=== PATIENT | female | born 1975 | race Caucasian/White ===

== ENCOUNTER 2024-02-14 00:03 | Inpatient (IN) | payer SELFPAY ==
[2024-02-14] VITALS (60 sets, daily range): BP systolic 93–169; BP diastolic 61–117; PULSE 89–128; RESP 12–31; TEMP 36.6–37.2; O2SAT 80–100; BMI 21.2; BMI 20.9
--- NOTE | 2024-02-14 00:17 | XRR_ITS ---
PROCEDURE INFORMATION: Exam: XR Chest Exam date and time: 02/14/2024 12:19 AM Age: 48 years old Clinical indication: Patient HX: ETOH with syncope TECHNIQUE: Imaging protocol: Radiologic exam of the chest. Views: 1 view. COMPARISON: No relevant prior studies available. FINDINGS: Lungs: Unremarkable. No consolidation. Pleural spaces: Unremarkable. No pleural effusion. No pneumothorax. Heart/Mediastinum: Unremarkable. No cardiomegaly. Bones/joints: Bony deformity of multiple left-sided ribs from prior trauma. XR/XR chest 1V portable [id number] IMPRESSION: No acute findings.
--- NOTE | 2024-02-14 00:27 | ECG_ITS ---
[facility] Test Date: 2024-02-14 Pat Name: Margi Colbert Department: Room: Gender: Female Study Director: : 1975 Requested By: Damon Honeycutt Order Number: [id number] Gema MD: Alcira Saxena M.D. Measurements Intervals [place] Rate: 101 P: 91 ME: 132 QRS: 88 QRSD: 96 T: 73 QT: 353 QTc: 459 Interpretive Statements SINUS TACHYCARDIA NONSPECIFIC ST & T-WAVE ABNORMALITY ABNORMAL RHYTHM ECG No previous ECG available for comparison Electronically Signed On 02-14-2024 20:26:49 CHASSIS DRIVER by Alcira Saxena M.D. [id number]
--- NOTE | 2024-02-14 00:51 | ED_ITS ---
HPI - Syncope 2 General: Chief Complaint: Syncope Stated Complaint: SYNCOPE Time Seen by Provider: 02/14/24 00:10 History of Present Illness: 48-year-old female who had a syncopal ep isode at home. Duration is unknown. She has multiple complaints including frequent falls, paresthesias in her feet, generalized weakness, weight loss, etc. She is intoxicated. She denies significant chest pain. She is reading a book on my interview. Related Data Allergies Allergy/AdvReac Type Severity Reaction Status Date / Time No Known Allergies Allergy Verified 02/14/24 03:44 Physical Exam 2 Const: COMMON NORMALS: no acute distress and alert GENERAL APPEARANCE: c ooperative and appears older than stated age ORIENTATION/CONSCIOUSNESS: Yes awake, Yes oriented to person and Yes oriented to place HENMT: COMMON NORMALS: normocephalic and atraumatic HEAD & SCALP: n ormocephalic and atraumatic FACE & SINUS: face symmetric Eye: COMMON NORMALS: Equal, round and reactive pupils present and EOMs intact bilaterally PUPIL: Yes Equal, round and reactive pupils present Neck/C-Spine: GENERAL: Yes trachea midline Resp: COMMON NORMALS: normal respiratory effort, No use of accessory muscles and clear to auscultation bilaterally AUSCULTATION: clear to auscultation bilaterally Cardio: COMMON NORMALS: regular rate and regular rhythm RATE: regular rate RHYTHM: regular rhythm GI: COMMON NORMALS: Soft to palpation PALPATION: Yes Soft to palpation Neuro: SENSORIUM/ORIENTATION: Yes alert, Yes oriented to person and Yes oriented to place CRANIAL NERVES: Yes CN normal except as noted Course 2 Vital Signs: Vital signs: Vital Signs Temperature 97.8 F 02/14/24 00:03 Pulse Rate 106 H 02/14/24 04:11 Respiratory Rate 19 H 02/14/24 04:11 Blood Pressure 152/94 02/14/24 03:00 Pulse Oximetry 100 02/14/24 03:20 Oxygen Delivery Me thod Room Air 02/14/24 04:11 MDM - Syncope Medical Decision Making Patient with acute episode of syncope. She also has what sounds like a conglomeration of more chronic symptoms for which she has not seen a doctor. She is slightly tachycardic. Saturations are good. She is afebrile and blood pressure is normal. Hemoglobin is 10.5, platelet count is 139. Bicarbonate is 7. Potassium is 3. Sodium is 129. Bilirubin is 2.3. She will require fluids hesitation, potassium replacement, etc. with her metabolic acidosis, she will require blood gas testing as well. Her alcohol level is nondetectable. pH is 7.16. Bicarbonate of blood gas testing. She will require bicarbonate drip. ICU admission. At 1 point in the ER, she ended up in the floor, confused. No one was in the room when this happened. It appears that she is most likely having seizures, likely alcohol withdrawal seizures. She is covered for sepsis with Zosyn and vancomycin after blood cultures. She will require a head CT on the way to the ICU. Lab Data 02/14/24 01:24 02/14/24 01:24 Radiology Impressions Chest X-Ray 02/14/24 00:17 IMPRESSION: No acute findings. Abdomen/Pelvis CT 02/14/24 02:06 IMPRESSION: 1. Decreased density of the liver, evidence for fatty infiltration. 2. Small hiatal hernia with gastroesophageal reflux. 3. Mild wall thickening and surrounding stranding adjacent to the right colon suspicious for colitis. Laboratory Results WBC 6.32 10^3/uL (3.29-11.43) 02/14/24 01:24 RBC 3.10 10^6/uL (3.85-5.65) L 02/14/24 01:24 Hgb 10.50 g/dL (11.27-16.99) L 02/14/24 01:24 Hct 32.3 % (36-47) L 02/14/24:24 MCV 104.2 fl (85-98) H 02/14/24:24 MCH 33.9 pg (27-33) H 02/14/24:24 MCHC 32.5 g/dL (30-55) 02/14/24 01:24 RDW 16.9 % (12.1-15.1) H 02/14/24 01:24 Plt Count 139 10^3/cmm (157-399) L 02/14/24 01:24 MPV 10.8 fL (7.4-10.4) H 02/14/24 01:24 Neut % (Auto) 83.4 % 02/14/24:24 Lymph % (Auto) 10.0 % 02/14/24:24 [place] % (Auto) 5.5 % 02/14/24 01:24 Eos % (Auto) 0.3 % 02/14/24 01:24 Baso % (Auto) 0.2 % 02/14/24 01:24 Neut # (Auto) 5.27 10^3/uL (1.8-7.7) 02/14/24 01:24 Lymph # (Auto) 0.6 10^3/uL (0.8-4.8) L 02/14/24 01:24 [place] # (Auto) 0.4 10^3/uL (0.2-0.9) 02/14/24 01:24 Eos # (Auto) 0.0 10^3/uL (0.0-0.8) 02/14/24 01:24 Baso # (Auto) 0.0 10^3/uL (0.0-0.1) 02/14/24 01:24 Nucleated RBC % (auto) 0.3 % 02/14/24 01:24 Nucleated RBCs # 0.0 /100WBC 02/14/24 01:24 PT 14.60 SECONDS (12.1-14.9) 02/14/24 01:24 INR 1.10 (0.8-1.2) 02/14/24 01:24 APTT 28.9 SECONDS (23.9-36.7) 02/14/24 01:24 Specimen Type Arterial 02/14/24 02:35 Sample Site Brachial, right 02/14/24 02:35 ABG pH 7.16 (7.35-7.45) L* 02/14/24 02:35 ABG pCO2 12.4 mmHg (35-45) L* 02/14/24 02:35 ABG pO2 129.0 mmHg (80.0-100.0) H 02/14/24 02:35 ABG HCO3 4.4 mmol/L (22-26) L 02/14/24 02:35 ABG Base Excess -22.2 mmol/L (-2.0-2.0) L 02/14/24 02:35 Nick Test N/a 02/14/24 02:35 Hematocrit 28.4 % (37-47) L 02/14/24 02:35 O2 Delivery Device Room air 02/14/24 02:35 Fios Line Installer ID [email or web address] 02/14/24 02:35 Sodium 129 mmol/L (136-145) L 02/14/24 01:24 Potassium 3.0 mmol/L (3.5-5.1) L 02/14/24 01:24 Chloride 85 mmol/L (98-107) L 02/14/24 01:24 Carbon Dioxide 7 mmol/L (22-29) L* 02/14/24 01:24 Anion Gap 40.0 (5-19) H 02/14/24 01:24 BUN 4 mg/dL (6-20) L 02/14/24 01:24 Creatinine 0.6 mg/dL (0.5-0.9) 02/14/24 01:24 GFR Calculation 106.7 mL/min (90-130) 02/14/24 01:24 Glucose 84 mg/dL (65-115) 02/14/24 01:24 Calculated Osmolality 264 mOsm/kg (285-295) L 02/14/24 01:24 Lactic Acid 3.1 mmol/L (0.5-2.2) H 02/14/24 01:24 Calcium 9.6 mg/dL (8.5-10.5) 02/14/24 01:24 Total Bilirubin 2.3 mg/dL (0.15-1.2) H 02/14/24 01:24 AST 68 U/L (0-32) H 02/14/24 01:24 ALT 15 U/L (0-33) 02/14/24 01:24 Alkaline Phosphatase 220 U/L (35-105) H 02/14/24 01:24 Creatine Kinase 248 U/L (26-192) H 02/14/24 01:24 Troponin T Baseline 36 ng/L (0-10) H 02/14/24 01:24 Total Protein 7.3 g/dL (6.6-8.7) 02/14/24 01:24 Albumin 4.7 g/dL (3.5-5.2) 02/14/24 01:24 Globulin 2.6 g/dL (1.3-4.6) 02/14/24 01:24 Lipase 187 U/L (13-60) H 02/14/24 01:24 Ethyl Alcohol < 10 mg/dL (0-10) 11/17/24 01:24 All radiology interpretation(s) finalized by discharge Critical Care Time 2 Critical Care Time: Critical Care Time: Yes Total Critical Care Time: 35 Attestation: This case had a high probability of a clinically significant, sudden, or life threatening deterioration of this patient's condition which required my full and direct attention, intervention and personal management. Time is independent of any procedures performed. Discharge Plan Discharge Patient Disposition: Admitted As Inpatient Admit Provider: Anali Lezama Clinical Impression: Metabolic acidosis, Acute hypokalemia, Acute alteration in mental status Condition: Serious Coding Level of Care Code ED Spring Tester for Nik Talbert
[2024-02-14 01:31] LABS: Basophils % 0.2 %; Eosinophils % 0.3 %; Hematocrit 32.3 % (36-47); Lymphocytes # 0.6 10^3/uL (0.8-4.8); Mean Corpuscular HGB Conc 32.5 g/dL (30-55); Mean Corpuscular Hemoglobin 33.9 pg (27-33); Mean Corpuscular Volume 104.2 fl (85-98); Mean Platelet Volume 10.8 fL (7.4-10.4); Monocytes # 0.4 10^3/uL (0.2-0.9); Monocytes % 5.5 %; Neutrophils # 5.27 10^3/uL (1.8-7.7); Neutrophils % 83.4 %; Nucleated Red Blood Cells % 0.3 %; Platelet Count 139 10^3/cmm (157-399); Red Cell Distribution Width 16.9 % (12.1-15.1); White Blood Count 6.32 10^3/uL (3.29-11.43)
[2024-02-14 01:47] LABS: Partial Thromboplastin Time 28.9 SECONDS (23.9-36.7)
[2024-02-14 01:49] LABS: Troponin(5th) Baseline 36 ng/L (0-10)
[2024-02-14 01:57] LABS: Alanine Aminotransferase 15 U/L (0-33); Albumin Level 4.7 g/dL (3.5-5.2); Alkaline Phosphatase 220 U/L (35-105); Aspartate Amino Transferase 68 U/L (0-32); Blood Urea Nitrogen 4 mg/dL (6-20); Calcium 9.6 mg/dL (8.5-10.5); Chloride 85 mmol/L (98-107); Creatine Phosphokinase 248 U/L (26-192); Creatinine Clr Calc Pharmacy 96.3243; Globulin 2.6 g/dL (1.3-4.6); Glomerular Filtration Rate 106.7 mL/min (90-130); Glucose 84 mg/dL (65-115); Osmolality Calculated 264 mOsm/kg (285-295); Sodium 129 mmol/L (136-145); Total Bilirubin 2.3 mg/dL (0.15-1.2); Total Protein 7.3 g/dL (6.6-8.7)
[2024-02-14 02:03] LABS: Alcohol Level < 10 mg/dL (0-10); Carbon Dioxide 7 mmol/L (22-29)
--- NOTE | 2024-02-14 02:06 | CTR_ITS ---
PROCEDURE INFORMATION: Exam: CT Abdomen And Pelvis With Contrast Exam date and time: 02/14/2024 2:23 AM Age: 48 years old Clinical indication: Pain and abnormal findings; Abnormal lab test; Elevated lipase; Abdominal pain; Generalized; Patient HX: Diffuse abd pain with elevated lipase and bilirubin; Additional info: Abdominal pain, hyperbilirubinemia TECHNIQUE: Imaging protocol: Computed tomography of the abdomen and pelvis with contrast. Radiation optimization: All CT scans at this facility use at least one of these dose optimization techniques: automated exposure control; mA and/or kV adjustment per patient size (includes targeted exams where dose is matched to clinical indication); or iterative reconstruction. Contrast material: OMNI 350; Contrast volume: 80 ml; Contrast route: INTRAVENOUS (IV); COMPARISON: CR (CHEST, ) 02/14/2024 12:19 AM RADIATION DOSE METRICS: Total DLP (mGy-cm): 344.12 FINDINGS: Diaphragm: Small hiatal hernia with gastroesophageal reflux. Liver: Decreased density of the liver, evidence for fatty infiltration. Gallbladder and biliary ducts: Normal. No calcified stones. No ductal dilation. Pancreas: Normal. No ductal dilation. Spleen: Normal. No splenomegaly. Adrenal glands: Normal. No mass. Kidneys and ureters: Normal. No hydronephrosis. Stomach and bowel: mild wall thickening and surrounding stranding adjacent to the right colon suspicious for colitis. Appendix: No evidence of appendicitis. Intraperitoneal space: Unremarkable. No free air. No significant fluid collection. Vasculature: Vascular calcification in the aorta and iliac vessels. No aneurysm. Lymph nodes: Unremarkable. No enlarged lymph nodes. Urinary bladder: Unremarkable as visualized. Reproductive: Unremarkable as visualized. Bones/joints: Bilateral posterior healing rib fractures, in the right at T9 and T10 and on the left at T8 through T10 . Soft tissues: Unremarkable. CT/CT abdomen pelvis w con* [id number] IMPRESSION: 1. Decreased density of the liver, evidence for fatty infiltration. 2. Small hiatal hernia with gastroesophageal reflux. 3. Mild wall thickening and surrounding stranding adjacent to the right colon suspicious for colitis.
[2024-02-14 02:22] LABS: Lactic Sepsis W/Reflex 3.1 mmol/L (0.5-2.2); Lipase 187 U/L (13-60)
[2024-02-14] MEDS: iohexol 350 mg/mL 500 mL Btl (per mL) IV (02:24)
[2024-02-14] MEDS: potassium chloride oral liq 20 mEq/15 mL UDC 40 MEQ PO (02:39)
[2024-02-14] MEDS: sodium chloride 0.9% 1,000 ML 999 ML IV ×2 (02:43→03:18)
[2024-02-14] MEDS: lidocaine 1% 5 ML in potassium chloride premix 100 ML 52.5 ML IV (02:45)
[2024-02-14 02:49] LABS: ABG PH Result 7.16 (7.35-7.45); Arterial Blood Gas Hematocrit 28.4 % (37-47); Base Excess ABG -22.2 mmol/L (-2.0-2.0); Blood Gas Sample Site Brachial, right; Blood Gas Sample Type Arterial; HCO3 ABG 4.4 mmol/L (22-26); Oxygen Device ROOM AIR
[2024-02-14 02:50] LABS: ABG PCO2 12.4 mmHg (35-45)
--- NOTE | 2024-02-14 03:34 | USR_ITS ---
PROCEDURE INFORMATION: Exam: US Abdomen, Limited; Right Upper Quadrant Exam date and time: 02/14/2024 6:52 AM Age: 48 years old Clinical indication: Condition or disease; Other: Hyperbilirubinemia; Additional info: Hyperbilirubinemia, hospitalist requested TECHNIQUE: Imaging protocol: Real time ultrasound of the abdomen with image documentation. Limited exam focused on the right upper quadrant. COMPARISON: CT abdomen pelvis w con* [id number] 02/14/2024 2:23 AM FINDINGS: Liver: There is hepatic steatosis. Gallbladder: Normal. No gallstones. There is no gallbladder wall thickening. Biliary ducts: Normal. No stones. No dilation. Pancreas: Visualized pancreas is unremarkable. Right kidney: Normal. No mass. No hydronephrosis. US/US gall bladder [id number] IMPRESSION: 1. No acute findings. 2. Hepatic steatosis.
[2024-02-14 03:57] LABS: Reflex Lactate Order REFLEX LACTIC ORDERD
[2024-02-14] MEDS: nicotine 21 mg Patch 1 PATCH TRANSDERMA (04:01)
[2024-02-14 04:07] LABS: Troponin 5 2HR 31.39 ng/L (0-10)
[2024-02-14 04:09] LABS: Troponin 5 2HR Delta -4.61 ABS# (0-10)
--- NOTE | 2024-02-14 04:25 | PC.NURSE ---
RN noticed pt had pulled off all leads on the monitor. This RN immediately to room to check on pt. Pt found in floor next to bed. Pt was sitting up with a book in her hand. Bed and floor were saturated with urine. IV catheter to left upper arm had been pulled out. Pt was confused and appeared postictal. No injuries identified upon assessment. Physician was notified and present at bedside to evaluate pt. litharge supervisor was notified. Pt was assisted back to bed. After approximately 10 minutes, pt became more alert and stated she had attempted to stand to go to the bathroom. Call light was in reach and pt had previously been instructed how to use call light. Call light placed back in reach of pt. Pt was instructed to use the call light in the event that she needs to get up again. Pt verbalized understanding.
--- NOTE | 2024-02-14 04:28 | P.HP_ITS ---
Providers/Chief Complaint 2 Admitting Physician: Anali Lezama MD Chief Complaint: SYNCOPE History of Present Illness Margi Lynch is a 48 year old female who does not see any physician does not take any medications, not endorsing any past medical history, stating that she drinks every other day fifth of whiskey and recently started tapering down her alcohol intake. She was sent to the hospital after 1 syncopal event. Patient lives with her . She also smokes 1 pack/day. Patient has not seen a physician in a long time. Not endorsing any cardiac or medical conditions. Patient is stating that she is not able to recall events from the day but seem like she had a seizure. Workup in the ER revealed severe metabolic acidosis high lactic acid abnormal bilirubin consistent with alcohol hepatopathy. Patient had an event in the ER when she fell in her room and then had urinary incontinence, her seizure was not witnessed. When I interviewed the patient she was awake and alert her postictal confusion improved, she was hypertensive tachycardic but doing well on room air She was not confused at all AOx3 GCS 15 NIH 0 Clinically looks dehydrated Patient is not endorsing chest pain shortness of breath recent fever nausea vomiting or diarrhea. Patient is stating that her her p.o. intake is very poor. She has been started on broad-spectrum antibiotics, bicarb drip, CT head is pending, EKG showing sinus tachycardia I have also requested gallbladder ultrasound Review of Systems 2 Const: Reports: chills and change in weight Eyes: Denies: change in vision ENMT: Denies: throat pain Card: Denies: chest pain Resp: Reports: dyspnea GI: Reports: nausea and vomiting : Denies: flank pain Musc: Reports: back pain Medications/Allergies Allergies Allergy/AdvReac Type Severity Reaction Status Date / Time No Known Allergies Allergy Verified 02/14/24 03:44 PFSH Acute 2 PFSH: Medical History (Updated 02/14/24 @ 05:12 by Anali Lezama MD) No pertinent past medical history Vitals/I&O/Wt Last Vital Signs Temp 97.8 F 02/14/24 00:03 Pulse 706 H 02/14/24 04:11 Resp 19 H 02/14/24 04:11 BP 152/94 02/14/24 03:00 Pulse Ox 100 02/14/24 03:20 O2 Del Method Room Air 02/14/24 04:11 02/13/24 02/13/24 02/14/24 14:59 22:59 06:59 Intake Total 1000 / 1000 Balance 1000 / 1000 Weight last 48 hrs Weight 54.431 kg Physical Exam 2 Narrative: Patient is awake and alert Dehydrated GCS 15 AOx3 GCS 15 NIH 0 S1, S2 tachycardia Currently on room air Hypertensive Clinically looks dehydrated Abdomen nontender Pleasant and cooperative able to give above-mentioned HPI No signs of postictal confusion No signs of meningitis Data 02/14/24 01:24 02/14/24 01:24 A&P Assessment and plan (1) Metabolic acidosis: (2) Acute hypokalemia: (3) Acute alteration in mental status: (4) Alcohol withdrawal seizure: (5) Hepatopathy: Plan Alcohol withdrawal seizure I will put patient on CIWA protocol She has received 1 g of Keppra in the ER Patient is trying to taper her alcohol intake Not endorsing any suicidal ideation, feels safe at home Syncope: Patient likely had a seizure Hyponatremia: Alcohol-related Clinically patient is dehydrated with hyponatremia and hypokalemia Sarcopenia protein calorie malnourishment May benefit from dietary consultation Patient endorsing poor p.o. intake Mild muscle injury no signs of rhabdomyolysis Severe metabolic acidosis related to ketosis and high lactic acid Started patient on bicarb drip Colitis: Patient has been given vancomycin and Zosyn I will keep patient on Zosyn for now Request gallbladder ultrasound Patient has alcohol-related hepatopathy: Continue thiamine and folic acid Patient counseled on alcohol cessation She is motivated to quit, Stating that she is trying to fill a paper form to get insurance to get medical help substance abuse: Endorsing using recreational drug marijuana, smokes 1 pack/day, drinks alcohol 1/5 of whiskey Hypokalemia: Replenished Dehydration: Continue IV fluids Will keep patient on GI soft diet DVT prophylaxis Lovenox Full code Admit to ICU Attestations 2 Medical Necessity Statement*: More than 2 midnights anticipated Diagnoses Metabolic acidosis E87.20 Acute hypokalemia E87.6 Acute alteration in mental status R41.82 Alcohol withdrawal seizure F10.939; R56.9 Hepatopathy K76.9
[2024-02-14] MEDS: sodium bicarbonate 150 MEQ in dextrose 5% 1,000 ML 100 MEQ IV (04:39)
--- NOTE | 2024-02-14 04:58 | CTR_ITS ---
PROCEDURE INFORMATION: Exam: CT Head Without Contrast Exam date and time: 02/14/2024 5:02 AM Age: 48 years old Clinical indication: Other: General weakness/ multiple falls; Patient HX: General weakness with recent frequent falls. ; Additional info: Altered mental status TECHNIQUE: Imaging protocol: Computed tomography of the head without contrast. Radiation optimization: All CT scans at this facility use at least one of these dose optimization techniques: automated exposure control; mA and/or kV adjustment per patient size (includes targeted exams where dose is matched to clinical indication); or iterative reconstruction. COMPARISON: No relevant prior studies available. RADIATION DOSE METRICS: Total DLP (mGy-cm): 1001.85 FINDINGS: Brain: Generalized global atrophy. No intracranial masses or mass effect. No midline shift. No abnormal extra-axial collections. No acute intracranial hemorrhage. Cerebral ventricles: Prominence of the ventricles commensurate with atrophy. No carlyn hydrocephalus. Paranasal sinuses: Left maxillary sinusitis incompletely imaged. Mastoid air cells: Visualized mastoid air cells are well aerated. Bones: Unremarkable. No acute fracture. Soft tissues: Unremarkable. CT/CT head wo con* [id number] IMPRESSION: 1. No acute intracranial findings. 2. Left maxillary sinusitis incompletely imaged.
--- NOTE | 2024-02-14 05:21 | USCV_ITS ---
Margi Lynch Age: 48 Gender: F : 1975 Exam Date: 02/14/2024 11:14 Ordering Phys: Anali Lezama MD Technologist: Silvino Santana [place] [facility] [place]: [place] BP: 135 / 92 HR: 98 Rhythm: Sinus Technical Quality: Adequate MEASUREMENTS (Male / Female) Normal Values 2D ECHO LV Diastolic Diameter PLAX 2.7 cm 4.2 - 5.9 / 3.9 - 5.3 cm IVS Diastolic Thickness 1.0 cm 0.6 - 1.0 / 0.6 - 0.9 cm IVS Systolic Thickness 1.2 cm LVPW Diastolic Thickness 0.8 cm 0.6 - 1.0 / 0.6 - 0.9 cm LVPW Systolic Thickness 1.1 cm LVOT Diameter 2.1 cm LV Ejection Fraction 2D Teich 85.5 % LV Ejection Fraction MOD 4C 63.0 % LV Ejection Fraction MOD 2C 57.6 % LV Ejection Fraction 2C AL 60.7 % LA Diameter 3.0 cm RA Systolic Volume 4C AL 14.4 ml RA Systolic Volume 4C MOD 14.3 ml LA Sys Volume AL 21.9 cm cubed LA Sys Volume Index AL 14.2 cm cubed/m squared Aorta at Sinotubular Diameter 2.0 cm IVC Diameter 1.7 cm M-MODE LA Ao Ratio MM 1.3 AV Cusp Separation MM 1.5 cm DOPPLER AV Peak Velocity 205.0 cm/s LVOT Peak Velocity 164.0 cm/s AV Area Cont Eq vti 2.8 cm squared AV Area Cont Eq pk 2.7 cm squared MV Peak Velocity 236.3 cm/s MV Area PHT 7.8 cm squared Mitral E to A Ratio 0.7 TV Peak Velocity 167.5 cm/s TR Peak Velocity 189.0 cm/s TR Peak Gradient 14.3 mmHg TR Mean Velocity 154.0 cm/s TR Mean Gradient 10.2 mmHg TR Velocity Time Integral 38.5 cm PV Peak Velocity 99.0 cm/s RV Ejection Time 0.2 s FINDINGS Left Ventricle Moderate left ventricular hypertrophy. Normal LV ejection fraction of 63%.no regional wall motion abnormalities. Right Ventricle Normal right ventricular size and systolic function. Right Atrium Normal right atrial size. Left Atrium Normal left atrial size. Mitral Valve No gross abnormality noted Aortic Valve Thickened aortic valve. The LV outflow tract velocity is 3.2. The Valsalva velocity is 4.41 m/s Tricuspid Valve No gross abnormalities noted Pulmonic Valve Pulmonic valve not well visualized. Pericardium No pericardial effusion. Aorta Normal aortic annulus size. IVC CONCLUSIONS Moderate left ventricular hypertrophy. Normal LV ejection fraction of 63%.no regional wall motion abnormalities. Features of hypertrophic obstructive cardiomyopathy with a resting gradient 41 mmHg and a Valsalva gradient of 77 mmHg Normal cardiac chamber sizes. No centimeters stenotic or regurgitant lesions There is no pericardial effusion. There are no intracardiac masses. No similar previous studies are available for comparison Dr Alcira Saxena MD FAC (Electronically Signed) Final Date: 15 February 2024 14:03 S
--- NOTE | 2024-02-14 05:23 | ECG_ITS ---
[employer] Test Date: 2024-02-14 Pat Name: Margi Lynch Department: Room: [facility] Gender: Female Director Of Distance Learning: : 1975 Requested By: Damon Honeycutt Order Number: [id number] Reading MD: JONNY CID Measurements Intervals [place] Rate: 100 P: 62 MA: 131 QRS: 59 QRSD: 99 T: 93 QT: 347 QTc: 449 Interpretive Statements SINUS TACHYCARDIA NONSPECIFIC ST & T-WAVE ABNORMALITY ABNORMAL RHYTHM ECG Compared to ECG 02/14/2024 00:27:58 No significant changes Electronically Signed On 02-17-2024 18:17:20 HR SPECIALIST by JONNY CID [email or web address]
[2024-02-14] MEDS: levETIRAcetam 1,000 MG/100 ML PREMIX 400 MG IV (05:41)
[2024-02-14] MEDS: enoxaparin 40 mg/0.4 mL Syringe SUBCUT (05:47)
[2024-02-14] MEDS: piperacillin-tazobactam 3.375 GM in sodium chloride 0.9% (plus) 50 ML IV ×2 (05:59→13:49)
[2024-02-14 06:01] LABS: HIV 1 & 2 Antibody Non-Reactive (Non-Reactiv); HIV 1 & 2 Antigen Non-Reactive (Non-Reactiv)
[2024-02-14 06:04] LABS: Procalcitonin 0.22 ng/mL (0-0.5); Vitamin B12 759 pg/mL (232-1245)
[2024-02-14 06:05] LABS: Lactic Acid level (Lactate) 2.8 mmol/L (0.5-2.2)
[2024-02-14 06:08] LABS: Estmated Average Glucose 77; Hemoglobin A1C 4.3 % (4.0-6.0)
[2024-02-14 06:10] LABS: Hepatitis A Antibody IgM Non-Reactive (Nonreactive); Hepatitis B Core AB, Total Non-Reactive (Nonreactive); Hepatitis B Surface AB < 3.5 (11.5-1000); Hepatitis B Surface Antigen Non-Reactive (Nonreactive); Hepatitis C Virus Antibody Non-Reactive (Nonreactive)
[2024-02-14 06:26] LABS: Alcohol Level < 10 mg/dL (0-10)
[2024-02-14] MEDS: thiamine 100 mg Tablet PO (08:22)
[2024-02-14] MEDS: folic acid 1 mg Tablet PO (08:22)
[2024-02-14] MEDS: multivitamin therapeutic Tablet 1 TAB PO (08:22)
[2024-02-14 11:17] LABS: Bilirubin Urine Negative (Negative); Blood Urine Trace (Negative); Glucose Urine UA Negative (Normal); Ketones Urine 3+ (Negative); Leukocyte Esterase Urine Trace (Negative); Nitrate Urine Positive (Negative); Protein Urine 1+ (Negative); Specific Gravity, Urine 1.017 (1.005-1.030); Urine Appearance Clear (CLEAR); Urine Color Yellow (Yellow); pH Urine 6.5 (5-7)
[2024-02-14 11:22] LABS: Add Urine Microscopic? YES; Bacteria Urine 1+ /hpf; Hyaline Casts Urine 4.11 /lpf; RBC Urine 0-2 /hpf (0-2); Squamous Epithelial Cell Urine 0-5 /hpf (0-5); WBC Urine 0-5 /hpf (0-5)
[2024-02-14 11:25] LABS: Add Urine Culture? Yes
[2024-02-14 11:37] LABS: Glucose Point of Care 175 mg/dL (70-110)
[2024-02-14 11:38] LABS: Amphetamines Screen Urine Negative (Negative); Barbiturates Screen Urine Negative (Negative); Benzodiazepines Screen Urine Negative (Negative); Cocaine Screen Urine Negative (Negative); Opiate Screen Urine Negative (Negative); PCP Screen Urine Negative (Negative); THC Screen Urine Negative (Negative)
--- NOTE | 2024-02-14 14:53 | PC.NURSE ---
Report was given to Annel in [facility]. Patient was transferred successfully to [facility] without any complications. Patient's belongings were transferred with patient. Patient was stable.
--- NOTE | 2024-02-14 15:55 | PM.MISC ---
Miscellaneous Note Purpose of Documentation: Overnight chart and H&P reviewed. Patient is currently awake and alert. She does take a long time to respond to questions, however when she does she does respond appropriately. She is currently able to tell me her name and age and date of . She knows that she is in the hospital. She states that she drinks nearly every day, estimates drinking 20 drinks in the past week. She states she has had seizures in the past, most recently was in May of this year. It does not appear she had any medical attention at that time. Denies any known history of epilepsy. There is some concern that she may have had a seizure episode in the emergency room. Patient was found on the floor having passed urine in bed. She was confused at that time Sb the thought was she may be postictal. There was no witnessed tonic-clonic movement at that time. In the ICU, when she attempted to ambulate from bed to the bedside commode, she could not make it to the commode in time and ended up having a bowel movement and passed urine on the floor. She denies any incontinence. Her alcohol level was negative and overall she is at currently admitted with a concern of alcohol withdrawal seizure/delirium tremens. Her last CIWA score was at 6. She is receiving Ativan as needed currently. She had evidence of high anion gap metabolic acidosis, for which she was on bicarb infusion. We will check a repeat CMP this afternoon to see if bicarb drip needed needs to be continued. CT head was negative. Will check ammonia level. Gallbladder ultrasound did not reveal any obvious hepatobiliary obstruction. No evidence of cirrhosis. He has not had any seizures since being here in the emergency room. CT of the abdomen and pelvis showed possible colitis. Will check C. difficile PCR. UA additionally positive, pending urine culture. She is currently on empiric piperacillin/tazobactam while pending results of cultures. She has been afebrile and hemodynamically stable Can move from ICU to med/surg with close CIWA monitoring.
[2024-02-14 16:24] LABS: ABG PCO2 30.6 mmHg (35-45); ABG PH Result 7.55 (7.35-7.45); Arterial Blood Gas Hematocrit 21.6 % (37-47); Base Excess ABG 4.2 mmol/L (-2.0-2.0); Blood Gas Operator Identificat GD; Blood Gas Sample Site Brachial, right; Blood Gas Sample Type Arterial; HCO3 ABG 26.8 mmol/L (22-26); Oxygen Device ROOM AIR; PO2 ABG 73.7 mmHg (80.0-100.0); PO2 FiO2 Ratio Arterial Blood 350
[2024-02-14 17:53] LABS: C.Diff PCR (Lab) NEGATIVE (Negative)
[2024-02-14 18:34] LABS: Alanine Aminotransferase 13 U/L (0-33); Albumin Level 3.9 g/dL (3.5-5.2); Alkaline Phosphatase 174 U/L (35-105); Ammonia 20 umol/L (11-51); Anion Gap 19.9 (5-19); Aspartate Amino Transferase 66 U/L (0-32); Blood Urea Nitrogen 8 mg/dL (6-20); Calcium 9.5 mg/dL (8.5-10.5); Carbon Dioxide 25 mmol/L (22-29); Chloride 96 mmol/L (98-107); Globulin 2.8 g/dL (1.3-4.6); Glomerular Filtration Rate 131.7 mL/min (90-130); Glucose 141 mg/dL (65-115); Osmolality Calculated 287 mOsm/kg (285-295); Sodium 138 mmol/L (136-145); Total Bilirubin 2.1 mg/dL (0.15-1.2); Total Protein 6.7 g/dL (6.6-8.7)
[2024-02-14 18:37] LABS: Potassium 2.9 mmol/L (3.5-5.1)
[2024-02-15] VITALS (7 sets, daily range): BP systolic 97–123; BP diastolic 61–81; PULSE 77–98; RESP 16–19; TEMP 36.7–36.9; O2SAT 97–100
[2024-02-15] MEDS: piperacillin-tazobactam 3.375 GM in sodium chloride 0.9% (plus) 50 ML IV ×3 (05:40→19:51)
[2024-02-15 05:53] LABS: Basophils % 0.2 %; Eosinophils % 0.2 %; Hematocrit 21.5 % (36-47); Lymphocytes # 1.4 10^3/uL (0.8-4.8); Lymphocytes % 28.2 %; Mean Corpuscular HGB Conc 33.5 g/dL (30-55); Mean Corpuscular Hemoglobin 33.3 pg (27-33); Mean Corpuscular Volume 99.5 fl (85-98); Mean Platelet Volume 12.1 fL (7.4-10.4); Monocytes # 0.5 10^3/uL (0.2-0.9); Monocytes % 9.2 %; Neutrophils # 3.01 10^3/uL (1.8-7.7); Neutrophils % 61.4 %; Nucleated Red Blood Cells % 0.4 %; Platelet Count 86 10^3/cmm (157-399); Red Blood Count 2.16 10^6/uL (3.85-5.65); Red Cell Distribution Width 16.7 % (12.1-15.1)
[2024-02-15 06:14] LABS: Lactate (Lactic Acid level) 1.2 mmol/L (0.5-2.2)
[2024-02-15 06:15] LABS: Alanine Aminotransferase 14 U/L (0-33); Albumin Level 3.4 g/dL (3.5-5.2); Alkaline Phosphatase 173 U/L (35-105); Anion Gap 18.2 (5-19); Aspartate Amino Transferase 82 U/L (0-32); Blood Urea Nitrogen 8 mg/dL (6-20); C Reactive Protein 4.9 mg/L (0.0-4.9); Calcium 9.4 mg/dL (8.5-10.5); Carbon Dioxide 27 mmol/L (22-29); Chloride 93 mmol/L (98-107); Creatinine Clr Calc Pharmacy 117.3626; Globulin 2.3 g/dL (1.3-4.6); Glomerular Filtration Rate 131.7 mL/min (90-130); Glucose 77 mg/dL (65-115); Magnesium 1.2 mg/dL (1.7-2.3); Osmolality Calculated 279 mOsm/kg (285-295); Sodium 136 mmol/L (136-145); Total Protein 5.7 g/dL (6.6-8.7)
[2024-02-15 06:36] LABS: Phosphorus 0.3 mg/dL (2.5-4.5); Potassium 2.2 mmol/L (3.5-5.1)
[2024-02-15] MEDS: enoxaparin 40 mg/0.4 mL Syringe SUBCUT (07:19)
[2024-02-15] MEDS: folic acid 1 mg Tablet PO (07:41)
[2024-02-15] MEDS: thiamine 100 mg Tablet PO (07:41)
[2024-02-15] MEDS: multivitamin therapeutic Tablet 1 TAB PO (07:41)
[2024-02-15] MEDS: potassium phosphate (mEq K) 40 MEQ in sodium chloride 0.9% (100 ml) 100 ML 25 MEQ IV ×2 (07:43→13:25)
[2024-02-15] MEDS: magnesium sulfate premix 2 GM/50 ML PIGGYBACK IV ×2 (07:43→13:24)
[2024-02-15 10:13] LABS: Basophils % 0.2 %; Eosinophils % 0.4 %; Hematocrit 23.8 % (36-47); Lymphocytes # 1.3 10^3/uL (0.8-4.8); Lymphocytes % 24.9 %; Mean Corpuscular Hemoglobin 34.6 pg (27-33); Mean Corpuscular Volume 101.7 fl (85-98); Mean Platelet Volume 11.8 fL (7.4-10.4); Monocytes # 0.4 10^3/uL (0.2-0.9); Neutrophils # 3.37 10^3/uL (1.8-7.7); Neutrophils % 65.9 %; Nucleated Red Blood Cells % 0.6 %; Platelet Count 101 10^3/cmm (157-399); Red Blood Count 2.34 10^6/uL (3.85-5.65); White Blood Count 5.11 10^3/uL (3.29-11.43)
--- NOTE | 2024-02-15 12:26 | P.PN_ITS ---
Vitals/I&O/Wt Last Vital Signs Temp 98.0 F 02/15/24 12:00 Pulse 91 02/15/24 12:00 Resp 19 H 02/15/24 12:00 BP 121/81 02/15/24 12:00 Pulse Ox 97 02/15/24 12:00 O2 Del Method Room Air 02/15/24 12:00 02/14/24 02/15/24 02/15/24 22:59 06:59 14:59 Intake Total 1500 / 1895 650 / 2545 580 / 580 Output Total 300 / 900 Balance 1200 / 995 650 / 1645 580 / 580 Weight last 48 hrs Weight 56.472 kg Weight 53.479 kg Weight 54.431 kg Data 02/15/24 10:00 02/15/24 05:17 Micro: Microbiology 02/14/24 11:09 Urine Culture - Preliminary Urine,Clean Catch 02/14/24 05:36 Blood Culture - Preliminary Blood NEGATIVE TO DATE 02/14/24 05:30 Blood Culture - Preliminary Blood NEGATIVE TO DATE A&P Assessment and plan (1) Metabolic acidosis: (2) Acute hypokalemia: (3) Acute alteration in mental status: (4) Alcohol withdrawal seizure: (5) Hepatopathy: Plan Alcohol withdrawal seizure I will put patient on CIWA protocol She has received 1 g of Keppra in the ER Patient is trying to taper her alcohol intake Not endorsing any suicidal ideation, feels safe at home Syncope: Patient likely had a seizure Hyponatremia: Alcohol-related Clinically patient is dehydrated with hyponatremia and hypokalemia Sarcopenia protein calorie malnourishment May benefit from dietary consultation Patient endorsing poor p.o. intake Mild muscle injury no signs of rhabdomyolysis Severe metabolic acidosis related to ketosis and high lactic acid Started patient on bicarb drip Colitis: Patient has been given vancomycin and Zosyn I will keep patient on Zosyn for now Request gallbladder ultrasound Patient has alcohol-related hepatopathy: Continue thiamine and folic acid Patient counseled on alcohol cessation She is motivated to quit, Stating that she is trying to fill a paper form to get insurance to get medical help substance abuse: Endorsing using recreational drug marijuana, smokes 1 pack/day, drinks alcohol 1/5 of whiskey Hypokalemia: Replenished Dehydration: Continue IV fluids Will keep patient on GI soft diet DVT prophylaxis Lovenox Full code Admit to ICU 02/15/2024 -Phosphorus 0.3, magnesium 1.2, potassium 2.2. ? Potassium phosphate ordered this morning x 2 bags. ? Magnesium 2g ordered. Will order an additional 2 g. ? Repeat electrolytes at 8 PM. ? Recheck BMP, magnesium, phosphorus in AM. ? Hemoglobin 7.2 this morning. Repeat CBC shows hemoglobin 8.10. Possible dilutional component?. Iron deficiency not ruled out. Possible megaloblastic component. Continue folic acid. Will add B12. ? Will check iron studies FOBT, TIBC, ferritin. -Patient states she is feeling better. No further seizures noted. Attestations 2 Medical Necessity Statement*: More than 2 midnights anticipated. Patient has severe electrolyte abnormalities and is requiring IV electrolyte replacement at this time. Diagnoses Metabolic acidosis E87.20 Acute hypokalemia E87.6 Acute alteration in mental status R41.82 Alcohol withdrawal seizure F10.939; R56.9 Hepatopathy K76.9
[2024-02-15 13:07] LABS: Iron 160 ug/dL (37-145)
[2024-02-15 13:21] LABS: Ferritin 2009 ng/mL (15-150)
[2024-02-15 13:22] LABS: Percent Saturation 90.3 % (20-50); Total Iron Binding Capacity 177 mcg/dl; Unsaturated Iron Binding < 17 ug/dL (112-347)
--- NOTE | 2024-02-15 14:33 | PC.NURSE ---
Pt requesting nicotine patch and family at bedside is requesting to speak with the doctor. This nurse messaged Dr. Graham via voalte. A new order for 14mg nicotine patch placed per Dr. Graham and a phone number for patients , Anselmo, was obtained for Dr. Graham to call and speak with him. [phone]
[2024-02-15] MEDS: nicotine 14 mg Patch 1 PATCH TRANSDERMA ×2 (14:37→16:51)
--- NOTE | 2024-02-15 15:05 | MR_ITS ---
WS: [id number] MRI BRAIN WITHOUT CONTRAST HISTORY: new onset seizures COMPARISON: CT head 02/14/2024 TECHNIQUE: Diffusion imaging, multiplanar T1, T2 and FLAIR imaging obtained. No evidence for acute infarct or hemorrhage. Malcolm-white matter differentiation is normal. No signific ant hippocampal atrophy. Mild to moderate atrophy. The amount of atrophy is more than expected for patient of this age involvi ng the frontal lobes. Minimal small vessel ischemic disease. No prior large territory infarct. Ventricles and extra-axial spaces are normal. No inferior displacement of cerebellar tonsils. The sella turcica and pituitary gland are unremarkabl e. Dural venous sinuses and [place] demonstrate no abnormality on this unenhanced studies. Paranasal sinuses: Complete opacification of the LEFT maxillary sinus with heterogeneous fluid extend ing into the ethmoid air cells. There is small amount of mucoperiosteal thickening in the LEFT fronta l and frontoethmoid recess. Mastoid air cells: Normal. Calvarium and scalp: Intact. MR/MR head wo con* [id number] IMPRESSION: 1. No acute infarct. Normal diffusion imaging. 2. Mild to moderate cerebral atrophy, more than expected for patient of this a ge. 3. Minimal small vessel ischemic disease. 4. LEFT maxillary sinusitis. Lesser amount of mucoperiosteal thickening in the LEFT frontal and ethmoid air cells.
[2024-02-15] MEDS: levETIRAcetam 500 mg Tablet PO (16:51)
[2024-02-15 20:37] LABS: Anion Gap 15.2 (5-19); Blood Urea Nitrogen 4 mg/dL (6-20); Calcium 9.4 mg/dL (8.5-10.5); Carbon Dioxide 31 mmol/L (22-29); Chloride 93 mmol/L (98-107); Creatinine Clr Calc Pharmacy 146.7032; Glomerular Filtration Rate 170.4 mL/min (90-130); Glucose 109 mg/dL (65-115); Osmolality Calculated 281 mOsm/kg (285-295); Sodium 137 mmol/L (136-145)
[2024-02-15 20:40] LABS: Potassium 2.2 mmol/L (3.5-5.1)
[2024-02-15] MEDS: lidocaine 1% 5 ML in potassium chloride premix 100 ML 26.25 ML IV (23:22)
[2024-02-16] VITALS (19 sets, daily range): BP systolic 118–178; BP diastolic 74–114; PULSE 77–92; RESP 16–18; TEMP 36.3–37.2; O2SAT 96–100
[2024-02-16] MEDS: potassium chloride ER 20 mEq Tablet 40 MEQ PO ×2 (00:24→02:05)
[2024-02-16 01:14] LABS: Basophils % 0.3 %; Eosinophils % 1.1 %; Lymphocytes # 1.2 10^3/uL (0.8-4.8); Lymphocytes % 33.6 %; Mean Corpuscular HGB Conc 33.3 g/dL (30-55); Mean Corpuscular Hemoglobin 32.9 pg (27-33); Mean Corpuscular Volume 98.6 fl (85-98); Mean Platelet Volume 11.9 fL (7.4-10.4); Monocytes # 0.4 10^3/uL (0.2-0.9); Monocytes % 9.5 %; Neutrophils # 2.02 10^3/uL (1.8-7.7); Neutrophils % 54.7 %; Nucleated Red Blood Cells % 0 %; Platelet Count 89 10^3/cmm (157-399); Red Blood Count 2.13 10^6/uL (3.85-5.65); Red Cell Distribution Width 16.9 % (12.1-15.1); White Blood Count 3.69 10^3/uL (3.29-11.43)
[2024-02-16 01:22] LABS: Magnesium 1.8 mg/dL (1.7-2.3)
[2024-02-16 01:23] LABS: Albumin Level 3.5 g/dL (3.5-5.2); Anion Gap 12.5 (5-19); Blood Urea Nitrogen 3 mg/dL (6-20); Calcium 8.2 mg/dL (8.5-10.5); Carbon Dioxide 32 mmol/L (22-29); Chloride 96 mmol/L (98-107); Creatinine Clr Calc Pharmacy 195.6043; Glomerular Filtration Rate 237.4 mL/min (90-130); Glucose 115 mg/dL (65-115); Phosphorus 1.2 mg/dL (2.5-4.5); Sodium 138 mmol/L (136-145)
[2024-02-16 01:33] LABS: Potassium 2.5 mmol/L (3.5-5.1)
[2024-02-16] MEDS: lidocaine 1% 5 ML in potassium chloride premix 100 ML 26.25 ML IV (04:21)
[2024-02-16] MEDS: enoxaparin 40 mg/0.4 mL Syringe SUBCUT (06:38)
[2024-02-16] MEDS: piperacillin-tazobactam 3.375 GM in sodium chloride 0.9% (plus) 50 ML IV ×3 (06:38→22:20)
[2024-02-16] MEDS: levETIRAcetam 500 mg Tablet PO ×2 (09:00→17:21)
[2024-02-16] MEDS: thiamine 100 mg Tablet PO (09:00)
[2024-02-16] MEDS: multivitamin therapeutic Tablet 1 TAB PO (09:00)
[2024-02-16] MEDS: nicotine 14 mg Patch 1 PATCH TRANSDERMA (09:01)
[2024-02-16] MEDS: folic acid 1 mg Tablet PO (09:01)
[2024-02-16 09:04] LABS: LAB Peripheral Smear Sent for Review
[2024-02-16] MEDS: pantoprazole 40 mg SDV IVP (13:03)
--- NOTE | 2024-02-16 13:37 | P.PN_ITS ---
Subjective 2 Subjective: Seen this morning. Hemoglobin 7.0 this morning, platelets 89. Had a long discussion with the patient. She states she that takes 7-8 shots of whiskey every other day. She says she has significantly cut down compared to before. Discussed with her regarding alcohol cessation. Offered her alcohol Anonymous information however she states that she knows how to obtain help when will find a support group and eminence on her own. Potassium 2.5. She is having potassium IV running at this time. Phosphorus 1.2 this morning. It is a 1.8. FOBT is positive. Vitals/I&O/Wt Last Vital Signs Temp 98.2 F 02/16/24 12:00 Pulse 89 02/16/24 12:00 Resp 18 02/16/24 12:00 BP 118/82 02/16/24 12:00 Pulse Ox 97 02/16/24 12:00 O2 Del Method Room Air 02/16/24 12:00 02/15/24 02/16/24 02/16/24 22:59 06:59 14:59 Intake Total 639.0909 / 1857.0079 155 / 2011.0079 1115 / 1115 Balance 639.0909 / 1857.0079 155 / 0079 1115 / 1115 Weight last 48 hrs Weight 58.695 kg Weight 56.472 kg Physical Exam 2 Narrative: Patient is awake and alert Appears significantly better compared to prior day. Alert oriented x 3 Normal S1-S2 Abdomen soft nontender No edema bilateral lower extremities Lungs clear to auscultation bilaterally no wheezes no rhonchi. Data 02/16/24 00:58 02/16/24 00:58 Micro: Microbiology 02/16/24 10:30 Occult Blood (FIT) - Final Stool Routine Collection 02/14/24 11:09 Urine Culture - Final Urine,Clean Catch A&P Assessment and plan (1) Metabolic acidosis: (2) Acute hypokalemia: (3) Acute alteration in mental status: (4) Alcohol withdrawal seizure: (5) Hepatopathy: Plan Alcohol withdrawal seizure I will put patient on CIWA protocol She has received 1 g of Keppra in the ER Patient is trying to taper her alcohol intake Not endorsing any suicidal ideation, feels safe at home Syncope: Patient likely had a seizure Hyponatremia: Alcohol-related Clinically patient is dehydrated with hyponatremia and hypokalemia Sarcopenia protein calorie malnourishment May benefit from dietary consultation Patient endorsing poor p.o. intake Mild muscle injury no signs of rhabdomyolysis Severe metabolic acidosis related to ketosis and high lactic acid Started patient on bicarb drip Colitis: Patient has been given vancomycin and Zosyn I will keep patient on Zosyn for now Request gallbladder ultrasound Patient has alcohol-related hepatopathy: Continue thiamine and folic acid Patient counseled on alcohol cessation She is motivated to quit, Stating that she is trying to fill a paper form to get insurance to get medical help substance abuse: Endorsing using recreational drug marijuana, smokes 1 pack/day, drinks alcohol 1/5 of whiskey Hypokalemia: Replenished Dehydration: Continue IV fluids Will keep patient on GI soft diet DVT prophylaxis Lovenox Full code Admit to ICU 02/15/2024 -Phosphorus 0.3, magnesium 1.2, potassium 2.2. ? Potassium phosphate ordered this morning x 2 bags. ? Magnesium 2g ordered. Will order an additional 2 g. ? Repeat electrolytes at 8 PM. ? Recheck BMP, magnesium, phosphorus in AM. ? Hemoglobin 7.2 this morning. Repeat CBC shows hemoglobin 8.10. Possible dilutional component?. Iron deficiency not ruled out. Possible megaloblastic component. Continue folic acid. Will add B12. ? Will check iron studies FOBT, TIBC, ferritin. -Patient states she is feeling better. No further seizures noted. 02/16/2024 ?Continue Keppra 500 twice daily. She will need outpatient EEG and neurology referral. She states that her family has a history of seizures and she has had seizures for quite some time now however has never seen a neurologist or ever been on seizure medication. Spoke to regarding this on the phone yesterday as well. MRI brain was performed which does not show any acute pathology explaining seizures. Discussed with her the possibility of having alcohol withdrawal seizures to which at first she stated that there is a possibility however she also stated that she has had them for a long time. ? Severe electrolyte abnormalities, potassium 2.5 today. Phosphorus 1.2. ? Hemoglobin 7.0 this morning. Ordered 1 unit packed RBC. FOBT positive. Ordered Protonix 40 IV twice daily, add sucralfate. I discussed with general surgery and placed a consult. Possibility of EGD colonoscopy in AM. Will await for further recommendations. ? Iron studies reviewed. ? I will discontinue vancomycin at this time. Continue Zosyn for possible colitis as evidenced on abdomen CT. Gallbladder ultrasound reviewed. Decrease density of the liver evidence for fatty infiltration. No gallbladder disease noted. Bile duct is normal. Continue Zosyn for total of 7 days. ? Will put dietary consult. Patient does have protein calorie malnutrition ? Hyponatremia, electrolyte abnormalities, thrombocytopenia most likely secondary to alcohol use. ? Discussed alcohol cessation with her today. She states she will find help and eminence and is not interested in having pressures for alcohol Anonymous at this time.. Attestations 2 Medical Necessity Statement*: Anemia GI workup. Severe electrolyte abnormalities warranting IV electrolyte replacement at this time. Diagnoses Metabolic acidosis E87.20 Acute hypokalemia E87.6 Acute alteration in mental status R41.82 Alcohol withdrawal seizure F10.939; R56.9 Hepatopathy K76.9
--- NOTE | 2024-02-16 13:48 | P.CONIM_ITS ---
Providers/Reason For Consult 2 Consulting Physician/Specialty*: Dr. York general surgery Reason for Consult*: GI bleed Attending Physician: Brandi Graham MD History of Present Illness History of Present Illness Margi Lynch is a 48 year old female for whom general surgery was consulted for occult GI bleed. The patient has been dropping hemoglobin. No hematochezia, no melena, no weight loss Medications/Allergies Home Medications Medication Instructions Recorded Confirmed Last Taken Type No Known Home Medications 02/14/24 02/14/24 Unknown History Allergies Allergy/AdvReac Type Severity Reaction Status Date / Time No Known Allergies Allergy Verified 02/14/24 03:44 Current Medications Generic Name Dose Route Start Last Admin Trade Name Freq PRN Reason Stop Dose Admin Enoxaparin Sodium 40 mg 02/14/24 05:30 02/16/24 06:38 Enoxaparin 40 Mg/0.4 Ml Syringe SUBCUT 40 mg Q24H EDINSON Administration Folic Acid 1 mg 02/14/24 09:00 02/16/24 09:01 Folic Acid 1 Mg Tablet PO 1 mg DAILY EDINSON Administration Piperacillin Sod/Tazobactam 50 mls @ 12.5 mls/hr 02/14/24 05:30 02/16/24 13:03 Sod 3.375 gm/ Sodium Chloride IV 12.5 mls/hr Q8H EDINSON Administration Levetiracetam 500 mg 02/15/24 18:00 02/16/24 09:00 Levetiracetam 500 Mg Tablet PO 500 mg BID EDINSON Administration Multivitamins Therapeutic 1 tab 02/14/24 09:00 02/16/24 09:00 Multivitamin Therapeutic Tablet PO 1 tab DAILY EDINSON Administration Nicotine 1 patch 02/15/24 14:31 02/16/24 09:01 Nicotine 14 Mg Patch TRANSDERMA 1 patch DAILY EDINSON Administration Pantoprazole Sodium 40 mg 02/16/24 12:45 02/16/24 13:03 Pantoprazole 40 Mg Sdv IVP 40 mg Q12H EDINSON Administration Thiamine Mononitrate 100 mg 02/14/24 09:00 02/16/24 09:00 Thiamine 100 Mg Tablet PO 100 mg DAILY EDINSON Administration PFSH Acute 2 PFSH: Medical History (Updated 02/16/24 @ 16:42 by Gigi York MD) No pertinent past medical history Vitals/I&O/Wt Last Vital Signs Temp 98.2 F 02/16/24 12:00 Pulse 89 02/16/24 12:00 Resp 18 02/16/24 12:00 BP 118/82 02/16/24 12:00 Pulse Ox 97 02/16/24 12:00 O2 Del Method Room Air 02/16/24 12:00 02/15/24 02/16/24 02/16/24 22:59 06:59 14:59 Intake Total 639.0909 / 1857.0079 155 2011.0079 1115 / 1115 Balance 639.0909 / 1857.0079 155 2011.0079 1115 / 1115 Weight last 48 hrs Weight 129 lb 6.4 oz Weight 124 lb 8 oz Physical Exam 2 Narrative: Chest: Unlabored breathing room air. No lymphadenopathy. Heart: Regular rate and rhythm. Abdomen: Soft, nontender, nondistended. No masses or lymphadenopathy. Data 02/16/24 00:58 02/16/24 14:26 Micro: Microbiology 02/16/24 10:30 Occult Blood (FIT) - Final Stool Routine Collection 02/14/24 11:09 Urine Culture - Final Urine,Clean Catch A&P Assessment and plan (1) GIB (gastrointestinal bleeding): Plan 48-year-old female some general surgery was consulted for possible GI bleed. Discussed risk and benefits and patient agrees to proceed with EGD and colonoscopy. Coding Level of Care Code 54281 Diagnoses GIB (gastrointestinal bleeding) K92.2 Time Spent (min) 30
[2024-02-16] MEDS: bisacodyl 5 mg Tablet 10 MG PO (14:14)
[2024-02-16] MEDS: magnesium citrate Btl 296 mL PO ×2 (14:15→19:44)
[2024-02-16 14:59] LABS: Anion Gap 14.1 (5-19); Blood Urea Nitrogen 3 mg/dL (6-20); Calcium 9.3 mg/dL (8.5-10.5); Carbon Dioxide 29 mmol/L (22-29); Chloride 99 mmol/L (98-107); Glomerular Filtration Rate 237.4 mL/min (90-130); Glucose 110 mg/dL (65-115); Osmolality Calculated 285 mOsm/kg (285-295); Potassium 3.1 mmol/L (3.5-5.1); Sodium 139 mmol/L (136-145)
[2024-02-16 15:01] LABS: Creatinine Clr Calc Pharmacy 198.8235
[2024-02-16] MEDS: sucralfate 1 gm Tablet PO ×2 (17:21→19:45)
[2024-02-16] MEDS: acetaminophen 500 mg Tablet PO (17:21)
[2024-02-16] MEDS: hyDRALAzine 20 mg/mL INJ 1 mL 5 MG IVP ×2 (18:15→19:51)
[2024-02-17] VITALS (8 sets, daily range): BP systolic 134–152; BP diastolic 83–107; PULSE 79–97; RESP 15–18; TEMP 36.4–37.2; O2SAT 98–100
[2024-02-17] MEDS: pantoprazole 40 mg SDV IVP ×2 (01:01→13:07)
[2024-02-17 05:45] LABS: Basophils % 0.5 %; Hematocrit 28.1 % (36-47); Lymphocytes # 1.8 10^3/uL (0.8-4.8); Mean Corpuscular HGB Conc 33.8 g/dL (30-55); Mean Corpuscular Hemoglobin 33.9 pg (27-33); Mean Corpuscular Volume 100.4 fl (85-98); Mean Platelet Volume 12.5 fL (7.4-10.4); Monocytes # 0.4 10^3/uL (0.2-0.9); Monocytes % 10.5 %; Nucleated Red Blood Cells % 0.7 %; Platelet Count 105 10^3/cmm (157-399); Red Cell Distribution Width 19.9 % (12.1-15.1); White Blood Count 4.09 10^3/uL (3.29-11.43)
[2024-02-17] MEDS: enoxaparin 40 mg/0.4 mL Syringe SUBCUT (06:01)
[2024-02-17] MEDS: piperacillin-tazobactam 3.375 GM in sodium chloride 0.9% (plus) 50 ML IV ×3 (06:01→23:00)
[2024-02-17] MEDS: sucralfate 1 gm Tablet PO ×4 (06:01→20:29)
[2024-02-17 06:14] LABS: Anion Gap 14.4 (5-19); Blood Urea Nitrogen 2 mg/dL (6-20); Calcium 8.5 mg/dL (8.5-10.5); Carbon Dioxide 28 mmol/L (22-29); Chloride 99 mmol/L (98-107); Creatinine Clr Calc Pharmacy 298.2353; Glomerular Filtration Rate 379.1 mL/min (90-130); Glucose 95 mg/dL (65-115); Osmolality Calculated 284 mOsm/kg (285-295); Sodium 139 mmol/L (136-145)
[2024-02-17 06:15] LABS: Slide Review Slide Review Perform
[2024-02-17 06:27] LABS: Potassium 2.4 mmol/L (3.5-5.1)
[2024-02-17] MEDS: nicotine 14 mg Patch 1 PATCH TRANSDERMA (09:02)
[2024-02-17] MEDS: potassium chloride ER 20 mEq Tablet 40 MEQ PO ×2 (09:03→15:22)
[2024-02-17] MEDS: levETIRAcetam 500 mg Tablet PO ×2 (09:03→17:17)
--- NOTE | 2024-02-17 11:22 | P.PN_ITS ---
Subjective 2 Subjective: No hematochezia, no melena Getting potassium repleted Vitals/I&O/Wt Last Vital Signs Temp 98.9 F 02/17/24 08:00 Pulse 82 02/17/24 08:34 Resp 16 02/17/24 08:34 BP 151/87 02/17/24 08:00 Pulse Ox 98 02/17/24 08:34 O2 Del Method Room Air 02/17/24 08:34 02/16/24 02/17/24 02/17/24 22:59 06:59 14:59 Intake Total 300 / 1415 50 / 1465 0 / 0 Balance 300 / 1415 50 / 1465 0 / 0 Weight last 48 hrs Weight 127 lb 4.8 oz Weight 129 lb 6.4 oz Physical Exam 2 Narrative: Chest: Unlabored breathing room air. No lymphadenopathy. Heart: Regular rate and rhythm. Abdomen: Soft, nontender, nondistended. No masses or lymphadenopathy. Data 02/17/24 05:06 02/17/24 05:06 Micro: Microbiology 02/16/24 10:30 Occult Blood (FIT) - Final Stool Routine Collection 02/14/24 11:09 Urine Culture - Final Urine,Clean Catch A&P Assessment and plan (1) GIB (gastrointestinal bleeding): Plan 48-year-old female consulted for possible GI bleed. Planning to scope after potassium gets repleted. Attestations 2 Medical Necessity Statement*: NA Coding Level of Care Code 97066 Diagnoses GIB (gastrointestinal bleeding) K92.2 Time Spent (min) 30
[2024-02-17] MEDS: potassium chloride premix 100 ML 25 MEQ IV (11:49)
[2024-02-17] MEDS: phosphorus 250 mg Tablet PO ×2 (13:07→17:18)
[2024-02-17] MEDS: multivitamin therapeutic Tablet 1 TAB PO (13:07)
[2024-02-17] MEDS: folic acid 1 mg Tablet PO (13:08)
[2024-02-17] MEDS: thiamine 100 mg Tablet PO (13:08)
[2024-02-17] MEDS: acetaminophen 500 mg Tablet PO (13:09)
--- NOTE | 2024-02-17 13:32 | P.PN_ITS ---
Subjective 2 Subjective: Seen this morning. Phosphorus at 1.2. Oral phosphorus ordered Potassium still low at 2.4. Patient did have a bowel prep last night and had multiple bowel movements. Most likely potassium low secondary to GI loss today. Discussed that with the patient. Going for EGD colonoscopy today. Hemoglobin stable at 9.5. She did have 1 unit of packed RBC yesterday. Vitals/I&O/Wt Last Vital Signs Temp 98.8 F 02/17/24 11:53 Pulse 87 02/17/24 11:53 Resp 16 02/17/24 11:53 BP 152/95 02/17/24 11:53 Pulse Ox 99 02/17/24 11:53 O2 Del Method Room Air 02/17/24 11:53 02/16/24 02/17/24 02/17/24 22:59 06:59 14:59 Intake Total 300 / 1415 50 / 1465 50 / 50 Balance 300 / 1415 50 / 1465 50 / 50 Weight last 48 hrs Weight 57.742 kg Weight 58.695 kg Physical Exam 2 Narrative: Patient is awake and alert Appears significantly better compared to prior day. Alert oriented x 3 Normal S1-S2 Abdomen soft nontender No edema bilateral lower extremities Lungs clear to auscultation bilaterally no wheezes no rhonchi. Data 02/17/24 05:06 02/17/24 05:06 Micro: Microbiology 02/16/24 10:30 Occult Blood (FIT) - Final Stool Routine Collection 02/14/24 11:09 Urine Culture - Final Urine,Clean Catch A&P Assessment and plan (1) Metabolic acidosis: (2) Acute hypokalemia: (3) Acute alteration in mental status: (4) Alcohol withdrawal seizure: (5) Hepatopathy: Plan Alcohol withdrawal seizure I will put patient on CIWA protocol She has received 1 g of Keppra in the ER Patient is trying to taper her alcohol intake Not endorsing any suicidal ideation, feels safe at home Syncope: Patient likely had a seizure Hyponatremia: Alcohol-related Clinically patient is dehydrated with hyponatremia and hypokalemia Sarcopenia protein calorie malnourishment May benefit from dietary consultation Patient endorsing poor p.o. intake Mild muscle injury no signs of rhabdomyolysis Severe metabolic acidosis related to ketosis and high lactic acid Started patient on bicarb drip Colitis: Patient has been given vancomycin and Zosyn I will keep patient on Zosyn for now Request gallbladder ultrasound Patient has alcohol-related hepatopathy: Continue thiamine and folic acid Patient counseled on alcohol cessation She is motivated to quit, Stating that she is trying to fill a paper form to get insurance to get medical help substance abuse: Endorsing using recreational drug marijuana, smokes 1 pack/day, drinks alcohol 1/5 of whiskey Hypokalemia: Replenished Dehydration: Continue IV fluids Will keep patient on GI soft diet DVT prophylaxis Lovenox Full code Admit to ICU 02/15/2024 -Phosphorus 0.3, magnesium 1.2, potassium 2.2. ? Potassium phosphate ordered this morning x 2 bags. ? Magnesium 2g ordered. Will order an additional 2 g. ? Repeat electrolytes at 8 PM. ? Recheck BMP, magnesium, phosphorus in AM. ? Hemoglobin 7.2 this morning. Repeat CBC shows hemoglobin 8.10. Possible dilutional component?. Iron deficiency not ruled out. Possible megaloblastic component. Continue folic acid. Will add B12. ? Will check iron studies FOBT, TIBC, ferritin. -Patient states she is feeling better. No further seizures noted. 02/16/2024 ?Continue Keppra 500 twice daily. She will need outpatient EEG and neurology referral. She states that her family has a history of seizures and she has had seizures for quite some time now however has never seen a neurologist or ever been on seizure medication. Spoke to regarding this on the phone yesterday as well. MRI brain was performed which does not show any acute pathology explaining seizures. Discussed with her the possibility of having alcohol withdrawal seizures to which at first she stated that there is a possibility however she also stated that she has had them for a long time. ? Severe electrolyte abnormalities, potassium 2.5 today. Phosphorus 1.2. ? Hemoglobin 7.0 this morning. Ordered 1 unit packed RBC. FOBT positive. Ordered Protonix 40 IV twice daily, add sucralfate. I discussed with general surgery and placed a consult. Possibility of EGD colonoscopy in AM. Will await for further recommendations. ? Iron studies reviewed. ? I will discontinue vancomycin at this time. Continue Zosyn for possible colitis as evidenced on abdomen CT. Gallbladder ultrasound reviewed. Decrease density of the liver evidence for fatty infiltration. No gallbladder disease noted. Bile duct is normal. Continue Zosyn for total of 7 days. ? Will put dietary consult. Patient does have protein calorie malnutrition ? Hyponatremia, electrolyte abnormalities, thrombocytopenia most likely secondary to alcohol use. ? Discussed alcohol cessation with her today. She states she will find help and eminence and is not interested in having pressures for alcohol Anonymous at this time... 02/17/2024 - Continue kepra 500 bid. EEG as outpatient. Neuro referral as outpatient. MRI reviewed - K low at 2.4, IV ordered - EGD colonoscopy today - Continue zosyn total 7 days - Hyponatremia, electrolyte abnormalities, thrombocytopenia most likely secondary to alcohol use. - Phosphorus orally ordered - Continue protonix 40 iv bid Attestations 2 Medical Necessity Statement*: EGD colonoscopy today Diagnoses Metabolic acidosis E87.20 Acute hypokalemia E87.6 Acute alteration in mental status R41.82 Alcohol withdrawal seizure F10.939; R56.9 Hepatopathy K76.9
[2024-02-17 13:37] LABS: Potassium 3.2 mmol/L (3.5-5.1)
[2024-02-17] MEDS: magnesium citrate Btl 296 mL PO ×2 (17:17→20:29)
[2024-02-17] MEDS: bisacodyl 5 mg Tablet 10 MG PO (17:18)
[2024-02-18] VITALS (10 sets, daily range): BP systolic 85–173; BP diastolic 60–117; PULSE 70–95; RESP 16–20; TEMP 36.1–37; O2SAT 92–100
[2024-02-18] MEDS: pantoprazole 40 mg SDV IVP (00:21)
[2024-02-18 05:22] LABS: Basophils % 0.9 %; Eosinophils % 1.1 %; Lymphocytes # 1.5 10^3/uL (0.8-4.8); Lymphocytes % 42.1 %; Mean Corpuscular Hemoglobin 33.1 pg (27-33); Mean Corpuscular Volume 100.3 fl (85-98); Mean Platelet Volume 10.8 fL (7.4-10.4); Monocytes # 0.5 10^3/uL (0.2-0.9); Monocytes % 15.5 %; Neutrophils # 1.39 10^3/uL (1.8-7.7); Neutrophils % 39.8 %; Nucleated Red Blood Cells % 0.6 %; Platelet Count 128 10^3/cmm (157-399); Red Blood Count 2.99 10^6/uL (3.85-5.65); Red Cell Distribution Width 20.4 % (12.1-15.1); White Blood Count 3.49 10^3/uL (3.29-11.43)
[2024-02-18 05:43] LABS: Anion Gap 12.9 (5-19); Blood Urea Nitrogen 2 mg/dL (6-20); Calcium 9.2 mg/dL (8.5-10.5); Carbon Dioxide 26 mmol/L (22-29); Chloride 102 mmol/L (98-107); Creatinine Clr Calc Pharmacy 197.4434; Glomerular Filtration Rate 237.4 mL/min (90-130); Glucose 93 mg/dL (65-115); Osmolality Calculated 282 mOsm/kg (285-295); Sodium 138 mmol/L (136-145)
[2024-02-18] MEDS: enoxaparin 40 mg/0.4 mL Syringe SUBCUT (05:59)
[2024-02-18] MEDS: piperacillin-tazobactam 3.375 GM in sodium chloride 0.9% (plus) 50 ML IV ×2 (05:59→15:11)
[2024-02-18] MEDS: sucralfate 1 gm Tablet PO ×4 (05:59→20:03)
[2024-02-18 06:03] LABS: Potassium 2.9 mmol/L (3.5-5.1)
[2024-02-18] MEDS: potassium chloride ER 20 mEq Tablet 40 MEQ PO ×2 (06:20→13:53)
[2024-02-18] MEDS: lidocaine 1% 5 ML in potassium chloride premix 100 ML 26.25 ML IV (10:40)
--- NOTE | 2024-02-18 10:46 | P.PN_ITS ---
Subjective 2 Subjective: No hematochezia, no melena Vitals/I&O/Wt Last Vital Signs Temp 98.6 F 02/18/24 07:35 Pulse 86 02/18/24 10:31 Resp 16 02/18/24 10:31 BP 146/82 02/18/24 07:35 Pulse Ox 98 02/18/24 10:31 O2 Del Method Room Air 02/18/24 10:31 02/17/24 02/18/24 02/18/24 22:59 06:59 14:59 Intake Total 930 / 980 50 / 1030 Balance 930 / 980 50 / 1030 Weight last 48 hrs Weight 127 lb 4.8 oz Weight 127 lb 4.8 oz Physical Exam 2 Narrative: Chest: Unlabored breathing room air. No lymphadenopathy. Heart: Regular rate and rhythm. Abdomen: Soft, nontender, nondistended. No masses or lymphadenopathy. Data 02/18/24 04:56 02/18/24 04:56 A&P Assessment and plan (1) GIB (gastrointestinal bleeding): Plan 48-year-old female whom general surgery was consulted for GI bleed. Proceeding with EGD and colonoscopy today. I have explained the risks and benefits of a diagnostic EGD and the patient agrees to proceed. I have explained the risks and benefits of a diagnostic colonoscopy and the patient agrees to proceed. Attestations 2 Medical Necessity Statement*: N/A Coding Level of Care Code 62123 Diagnoses GIB (gastrointestinal bleeding) K92.2 Time Spent (min) 30
[2024-02-18] MEDS: sodium chloride 0.9% 1,000 ML 30 ML IV (11:58)
--- NOTE | 2024-02-18 11:59 | P.ANESASSM_ITS ---
Pre-Anesthetic Assessment Height/Weight: Height 1.6 m Weight 57.742 kg Temp Pulse Resp BP Pulse Ox O2 Del Method 97.0 F L 79 16 171/117 99 Room Air 02/18/24 11:19 02/18/24 11:19 02/18/24 11:19 02/18/24 11:19 02/18/24 11:19 02/18/24 11:19 Preop Diagnosis: screening Operation Date: 02/18/24 12:00 Proposed Procedures p EGD(Not Applicable) - Gigi York MD s Colonoscopy(Not Applicable) - Gigi York MD Familial anesthetic complications: none Was Beta Abad taken within 24 hours: N/A Was Clonidine taken within 24 hours: N/A Social Alcohol and Tobacco 1/2 PPD pack(s) per day 5 shots per day Exam alert, oriented x 3, clear to auscultation bilaterally and regular rate & rhythm Airway Submandibular: within normal limits Cervical ROM: within normal limits Mallampati: Class II Dentition: chipped and loose Comments: Comments: Poor dentition History/ROS No significant history except as noted and No significant complaints Pulmonary None reported CV/HEM None reported None reported Hepatic None reported GI None reported Metabolic None reported Musc/skel None reported Neuropsych Seizure Alcoholic seizure Anesthetic Plan ASA status: 3 Anesthesia: MAC Risk of > 500 ml blood loss (7ml/kg in children): No Medications/Allergies Home Medications Medication Instructions Recorded Confirmed Last Taken Type No Known Home Medications 02/14/24 02/14/24 Unknown History Allergies Allergy/AdvReac Type Severity Reaction Status Date / Time No Known Allergies Allergy Verified 02/14/24 03:44 Current Medications Generic Name Dose Route Start Last Admin Trade Name Freq PRN Reason Stop Dose Admin Acetaminophen 500 mg 02/14/24 05:21 02/17/24 13:09 Acetaminophen 500 Mg Tablet PO 500 mg Q4H PRN Administration fever Enoxaparin Sodium 40 mg 02/14/24 05:30 02/18/24 05:59 Enoxaparin 40 Mg/0.4 Ml Syringe SUBCUT 40 mg Q24H EDINSON Administration Folic Acid 1 mg 02/14/24 09:00 02/17/24 13:08 Folic Acid 1 Mg Tablet PO 1 mg DAILY EDINSON Administration Piperacillin Sod/Tazobactam 50 mls @ 12.5 mls/hr 02/16/24 23:00 02/18/24 11:07 Sod 3.375 gm/ Sodium Chloride IV Infused Q8H EDINSON Infusion Lidocaine HCl 5 ml/ Potassium 105 mls @ 26.25 mls/hr 02/18/24 10:15 02/18/24 10:40 Chloride IV 02/18/24 14:14 26.25 mls/hr ONCE ONE Administration Sodium Chloride 1,000 mls @ 30 mls/hr 02/18/24 11:30 02/18/24 11:58 Sodium Chloride 0.9% IV 02/19/24 11:29 30 mls/hr .Q24H EDINSON Administration Levetiracetam 500 mg 02/15/24 18:00 02/17/24 17:17 Levetiracetam 500 Mg Tablet PO 500 mg BID EDINSON Administration Multivitamins Therapeutic 1 tab 02/14/24 09:00 02/17/24 13:07 Multivitamin Therapeutic Tablet PO 1 tab DAILY EDINSON Administration Nicotine 1 patch 02/15/24 14:31 02/17/24 09:02 Nicotine 14 Mg Patch TRANSDERMA 1 patch DAILY EDINSON Administration Pantoprazole Sodium 40 mg 02/16/24 12:45 02/18/24 00:21 Pantoprazole 40 Mg Sdv IVP 40 mg Q12H EDINSON Administration Potassium Chloride 40 meq 02/17/24 09:00 02/17/24 09:03 Potassium Chloride Er 20 Meq Tablet PO 40 meq DAILY EDINSON Administration Potassium Phosphate 250 mg 02/17/24 09:00 02/17/24 17:18 Phosphorus 250 Mg Tablet PO 250 mg BID EDINSON Administration Sucralfate 1 gm 02/16/24 17:00 02/18/24 05:59 Sucralfate 1 Gm Tablet PO 1 gm AC&BEDTIME EDINSON Administration Thiamine Mononitrate 100 mg 02/14/24 09:00 02/17/24 13:08 Thiamine 100 Mg Tablet PO 100 mg DAILY EDINSON Administration PFSH Anesthesia Medical History (Updated 02/16/24 @ 16:42 by Gigi York MD) No pertinent past medical history Data Anesthesia 02/18/24 04:56 02/18/24 04:56 Short CBC 02/17/24 02/18/24 Range/Units 05:06 04:56 WBC 4.09 3.49 (3.29-11.43) 10^3/uL Hgb 9.50 L 9.90 L (11.27-16.99) g/dL Hct 28.1 L 30.0 L (36-47) % MCV 100.4 H 100.3 H (85-98) fl Plt Count 105 L 128 L (157-399) 10^3/cmm Neut % (Auto) 44.0 39.8 % Neut # (Auto) 1.80 1.39 L (1.8-7.7) 10^3/uL BMP 02/16/24 02/17/24 02/17/24 14:26 05:06 13:07 Sodium 139 139 Potassium 3.1 L 2.4 L* D 3.2 L Chloride 99 99 Carbon Dioxide 29 28 BUN 3 L 2 L Creatinine 0.3 L 0.2 L Glucose 110 95 Calcium 9.3 8.5 02/18/24 04:56 Sodium 138 Potassium 2.9 L Chloride 102 Carbon Dioxide 26 BUN 2 L Creatinine 0.3 L Glucose 93 Calcium 9.2 Blood Bank 02/15/24 10:00 Blood Type A Positive Rho(D) Type Rh positive Antibody Screen Negative Cardiac Studies: 2 Echocardiogram 02/14/24
--- NOTE | 2024-02-18 13:00 | PM.MISC ---
Miscellaneous Note Note: Large polyp resected from rectum. Clipped twice. Adequate hemostasis. Cleared for discharge from surgical perspective. See endoscopy report.
--- NOTE | 2024-02-18 13:20 | ANE.PACU2 ---
Inpatient post-anesthesia follow up: Airway intact: Yes Vital signs: Temperature 97.6 F Pulse Rate 84 Respiratory Rate 16 Blood Pressure 109/87 Pulse Oximetry 100 Oxygen Delivery Me thod Room Air Oxygen Flow Rate Fraction of Inspir ed Oxygen Hydration adequate: Yes Nausea and vomiting: No Pain level: 1 Mental status: Baseline
[2024-02-18] MEDS: levETIRAcetam 500 mg Tablet PO ×2 (13:53→17:41)
[2024-02-18] MEDS: multivitamin therapeutic Tablet 1 TAB PO (13:53)
[2024-02-18] MEDS: thiamine 100 mg Tablet PO (13:54)
[2024-02-18] MEDS: phosphorus 250 mg Tablet PO ×2 (13:54→17:41)
[2024-02-18] MEDS: nicotine 14 mg Patch 1 PATCH TRANSDERMA (13:54)
[2024-02-18] MEDS: folic acid 1 mg Tablet PO (13:55)
--- NOTE | 2024-02-18 16:17 | P.PN_ITS ---
Subjective 2 Subjective: Seen her at bedside this morning. No acute overnight events noted Medications: Reviewed: Yes Vitals/I&O/Wt Last Vital Signs Temp 97.6 F 02/18/24 13:10 Pulse 84 02/18/24 13:10 Resp 16 02/18/24 13:10 BP 109/87 02/18/24 13:10 Pulse Ox 100 02/18/24 13:10 O2 Del Method Room Air 02/18/24 13:10 02/18/24 02/18/24 02/18/24 06:59 14:59 22:59 Intake Total 50 / 1030 155 / 155 Balance 50 / 1030 155 / 155 Weight last 48 hrs Weight 57.742 kg Weight 57.742 kg Physical Exam 2 Narrative: Patient is awake and alert Appears significantly better compared to prior day. Alert oriented x 3 Normal S1-S2 Abdomen soft nontender No edema bilateral lower extremities Lungs clear to auscultation bilaterally no wheezes no rhonchi. Data 02/18/24 04:56 02/18/24 04:56 A&P Assessment and plan (1) Metabolic acidosis: (2) Acute hypokalemia: (3) Acute alteration in mental status: (4) Alcohol withdrawal seizure: (5) Hepatopathy: Plan Alcohol withdrawal seizure I will put patient on CIWA protocol She has received 1 g of Keppra in the ER Patient is trying to taper her alcohol intake Not endorsing any suicidal ideation, feels safe at home Syncope: Patient likely had a seizure Hyponatremia: Alcohol-related Clinically patient is dehydrated with hyponatremia and hypokalemia Sarcopenia protein calorie malnourishment May benefit from dietary consultation Patient endorsing poor p.o. intake Mild muscle injury no signs of rhabdomyolysis Severe metabolic acidosis related to ketosis and high lactic acid Started patient on bicarb drip Colitis: Patient has been given vancomycin and Zosyn I will keep patient on Zosyn for now Request gallbladder ultrasound Patient has alcohol-related hepatopathy: Continue thiamine and folic acid Patient counseled on alcohol cessation She is motivated to quit, Stating that she is trying to fill a paper form to get insurance to get medical help substance abuse: Endorsing using recreational drug marijuana, smokes 1 pack/day, drinks alcohol 1/5 of whiskey Hypokalemia: Replenished Dehydration: Continue IV fluids Will keep patient on GI soft diet DVT prophylaxis Lovenox Full code Admit to ICU 02/15/2024 -Phosphorus 0.3, magnesium 1.2, potassium 2.2. ? Potassium phosphate ordered this morning x 2 bags. ? Magnesium 2g ordered. Will order an additional 2 g. ? Repeat electrolytes at 8 PM. ? Recheck BMP, magnesium, phosphorus in AM. ? Hemoglobin 7.2 this morning. Repeat CBC shows hemoglobin 8.10. Possible dilutional component?. Iron deficiency not ruled out. Possible megaloblastic component. Continue folic acid. Will add B12. ? Will check iron studies FOBT, TIBC, ferritin. -Patient states she is feeling better. No further seizures noted. 02/16/2024 ?Continue Keppra 500 twice daily. She will need outpatient EEG and neurology referral. She states that her family has a history of seizures and she has had seizures for quite some time now however has never seen a neurologist or ever been on seizure medication. Spoke to regarding this on the phone yesterday as well. MRI brain was performed which does not show any acute pathology explaining seizures. Discussed with her the possibility of having alcohol withdrawal seizures to which at first she stated that there is a possibility however she also stated that she has had them for a long time. ? Severe electrolyte abnormalities, potassium 2.5 today. Phosphorus 1.2. ? Hemoglobin 7.0 this morning. Ordered 1 unit packed RBC. FOBT positive. Ordered Protonix 40 IV twice daily, add sucralfate. I discussed with general surgery and placed a consult. Possibility of EGD colonoscopy in AM. Will await for further recommendations. ? Iron studies reviewed. ? I will discontinue vancomycin at this time. Continue Zosyn for possible colitis as evidenced on abdomen CT. Gallbladder ultrasound reviewed. Decrease density of the liver evidence for fatty infiltration. No gallbladder disease noted. Bile duct is normal. Continue Zosyn for total of 7 days. ? Will put dietary consult. Patient does have protein calorie malnutrition ? Hyponatremia, electrolyte abnormalities, thrombocytopenia most likely secondary to alcohol use. ? Discussed alcohol cessation with her today. She states she will find help and eminence and is not interested in having pressures for alcohol Anonymous at this time... 02/17/2024 - Continue kepra 500 bid. EEG as outpatient. Neuro referral as outpatient. MRI reviewed - K low at 2.4, IV ordered - EGD colonoscopy today - Continue zosyn total 7 days - Hyponatremia, electrolyte abnormalities, thrombocytopenia most likely secondary to alcohol use. - Phosphorus orally ordered - Continue protonix 40 iv bid 02/18/24 Patient had colonoscopy today, 2 polyps identified s/p polypectomy Hemoglobin stable at 9.9 Will continue multivitamin, thiamine and folic acid Continue Keppra 500 twice daily for seizures Continue IV Zosyn and normal saline at 30 cc/h Anticipating discharge in a.m. Attestations 2 Medical Necessity Statement*: Anticipating discharge home in a.m. Time Spent in Patient Care: 25 minute Coding Level of Care Code Acute Code for Chg Fwd Diagnoses Metabolic acidosis E87.20 Acute hypokalemia E87.6 Acute alteration in mental status R41.82 Alcohol withdrawal seizure F10.939; R56.9 Hepatopathy K76.9 Time Spent (min) 25
[2024-02-18] MEDS: metroNIDAZOLE 500 MG Tablet PO (20:03)
[2024-02-18] MEDS: ciprofloxacin 500 mg Tablet PO (20:03)
[2024-02-19] VITALS (7 sets, daily range): BP systolic 128–162; BP diastolic 78–102; PULSE 81–109; RESP 16–18; TEMP 37.1–37.2; O2SAT 97–99
[2024-02-19 05:10] LABS: Basophils % 0.6 %; Eosinophils % 1.1 %; Hematocrit 28.2 % (36-47); Lymphocytes # 1.2 10^3/uL (0.8-4.8); Lymphocytes % 32.3 %; Mean Corpuscular HGB Conc 31.9 g/dL (30-55); Mean Corpuscular Hemoglobin 32.7 pg (27-33); Mean Corpuscular Volume 102.5 fl (85-98); Mean Platelet Volume 11.3 fL (7.4-10.4); Monocytes # 0.7 10^3/uL (0.2-0.9); Monocytes % 20.2 %; Neutrophils # 1.62 10^3/uL (1.8-7.7); Neutrophils % 45.5 %; Nucleated Red Blood Cells % 0 %; Platelet Count 132 10^3/cmm (157-399); Red Blood Count 2.75 10^6/uL (3.85-5.65); Red Cell Distribution Width 20.1 % (12.1-15.1); White Blood Count 3.56 10^3/uL (3.29-11.43)
[2024-02-19 05:26] LABS: Anion Gap 11.6 (5-19); Blood Urea Nitrogen 3 mg/dL (6-20); Calcium 9.1 mg/dL (8.5-10.5); Carbon Dioxide 26 mmol/L (22-29); Chloride 103 mmol/L (98-107); Creatinine Clr Calc Pharmacy 198.4948; Glomerular Filtration Rate 237.4 mL/min (90-130); Glucose 122 mg/dL (65-115); Osmolality Calculated 282 mOsm/kg (285-295); Potassium 3.6 mmol/L (3.5-5.1); Sodium 137 mmol/L (136-145)
[2024-02-19] MEDS: sucralfate 1 gm Tablet PO ×2 (05:45→10:52)
[2024-02-19] MEDS: enoxaparin 40 mg/0.4 mL Syringe SUBCUT (05:45)
[2024-02-19] MEDS: potassium chloride ER 20 mEq Tablet 40 MEQ PO (08:09)
[2024-02-19] MEDS: multivitamin therapeutic Tablet 1 TAB PO (08:09)
[2024-02-19] MEDS: metroNIDAZOLE 500 MG Tablet PO (08:09)
[2024-02-19] MEDS: levETIRAcetam 500 mg Tablet PO (08:09)
[2024-02-19] MEDS: thiamine 100 mg Tablet PO (08:09)
[2024-02-19] MEDS: ciprofloxacin 500 mg Tablet PO (08:10)
[2024-02-19] MEDS: folic acid 1 mg Tablet PO (08:10)
[2024-02-19] MEDS: nicotine 14 mg Patch 1 PATCH TRANSDERMA (08:10)
--- NOTE | 2024-02-19 11:51 | P.PN_ITS ---
Subjective 2 Subjective: Hemoglobin stable Bloody bowel movements clearing out Vitals/I&O/Wt Last Vital Signs Temp 98.7 F 02/19/24 08:00 Pulse 81 02/19/24 09:15 Resp 16 02/19/24 09:15 BP 159/102 02/19/24 08:00 Pulse Ox 99 02/19/24 09:15 O2 Del Method Room Air 02/19/24 09:15 02/18/24 02/19/24 02/19/24 22:59 06:59 14:59 Intake Total 407.5 / 562.5 360 / 360 Balance 407.5 / 562.5 360 / 360 Weight last 48 hrs Weight 128 lb 14.4 oz Weight 127 lb 4.8 oz Physical Exam 2 Narrative: Chest: Unlabored breathing room air. No lymphadenopathy. Heart: Regular rate and rhythm. Abdomen: Soft, nontender, nondistended. No masses or lymphadenopathy. Data 02/19/24 05:00 02/19/24 05:00 Micro: Microbiology 02/14/24 05:36 Blood Culture - Final Blood NO GROWTH AFTER 5 DAYS 02/14/24 05:30 Blood Culture - Final Blood NO GROWTH AFTER 5 DAYS A&P Assessment and plan (1) GIB (gastrointestinal bleeding): Plan 48-year-old female status post colonoscopy and polyp removal. Bloody bowel movements are clearing out. She can follow-up with me in the office in 2 weeks to review pathology results. Attestations 2 Medical Necessity Statement*: NA Coding Level of Care Code 28725 Diagnoses GIB (gastrointestinal bleeding) K92.2 Time Spent (min) 30
--- NOTE | 2024-02-19 12:24 | PM.DCS ---
Discharge Providers Date of Admission: 02/14/24 03:35 Date of Discharge: February 19, 2024 Attending Provider at Admission: Anali Lezama MD Attending Provider at Discharge: Belgica You MD Diagnoses at Discharge Discharge Diagnosis (1) GIB (gastrointestinal bleeding): Status: Acute Reason for Visit Reason for Visit: SYNCOPE Brief History: Margi Lynch is a 48 year old female who does not see any physician does not take any medications, not endorsing any past medical history, stating that she drinks every other day fifth of whiskey and recently started tapering down her alcohol intake. She was sent to the hospital after 1 syncopal event. Patient lives with her . She also smokes 1 pack/day. Patient has not seen a physician in a long time. Not endorsing any cardiac or medical conditions. Patient is stating that she is not able to recall events from the day but seem like she had a seizure. Workup in the ER revealed severe metabolic acidosis high lactic acid abnormal bilirubin consistent with alcohol hepatopathy. Patient had an event in the ER when she fell in her room and then had urinary incontinence, her seizure was not witnessed. When I interviewed the patient she was awake and alert her postictal confusion improved, she was hypertensive tachycardic but doing well on room air She was not confused at all AOx3 GCS 15 NIH 0 Clinically looks dehydrated Patient is not endorsing chest pain shortness of breath recent fever nausea vomiting or diarrhea. Patient is stating that her her p.o. intake is very poor. She has been started on broad-spectrum antibiotics, bicarb drip, CT head is pending, EKG showing sinus tachycardia I have also requested gallbladder ultrasound Hospital Course Hospital Course Alcohol withdrawal seizure I will put patient on CIWA protocol She has received 1 g of Keppra in the ER Patient is trying to taper her alcohol intake Not endorsing any suicidal ideation, feels safe at home Syncope: Patient likely had a seizure Hyponatremia: Alcohol-related Clinically patient is dehydrated with hyponatremia and hypokalemia Sarcopenia protein calorie malnourishment May benefit from dietary consultation Patient endorsing poor p.o. intake Mild muscle injury no signs of rhabdomyolysis Severe metabolic acidosis related to ketosis and high lactic acid Started patient on bicarb drip Colitis: Patient has been given vancomycin and Zosyn I will keep patient on Zosyn for now Request gallbladder ultrasound Patient has alcohol-related hepatopathy: Continue thiamine and folic acid Patient counseled on alcohol cessation She is motivated to quit, Stating that she is trying to fill a paper form to get insurance to get medical help substance abuse: Endorsing using recreational drug marijuana, smokes 1 pack/day, drinks alcohol 1/5 of whiskey Hypokalemia: Replenished Dehydration: Continue IV fluids Will keep patient on GI soft diet DVT prophylaxis Lovenox Full code Admit to ICU 02/15/2024 -Phosphorus 0.3, magnesium 1.2, potassium 2.2. ? Potassium phosphate ordered this morning x 2 bags. ? Magnesium 2g ordered. Will order an additional 2 g. ? Repeat electrolytes at 8 PM. ? Recheck BMP, magnesium, phosphorus in AM. ? Hemoglobin 7.2 this morning. Repeat CBC shows hemoglobin 8.10. Possible dilutional component?. Iron deficiency not ruled out. Possible megaloblastic component. Continue folic acid. Will add B12. ? Will check iron studies FOBT, TIBC, ferritin. -Patient states she is feeling better. No further seizures noted. 02/16/2024 ?Continue Keppra 500 twice daily. She will need outpatient EEG and neurology referral. She states that her family has a history of seizures and she has had seizures for quite some time now however has never seen a neurologist or ever been on seizure medication. Spoke to regarding this on the phone yesterday as well. MRI brain was performed which does not show any acute pathology explaining seizures. Discussed with her the possibility of having alcohol withdrawal seizures to which at first she stated that there is a possibility however she also stated that she has had them for a long time. ? Severe electrolyte abnormalities, potassium 2.5 today. Phosphorus 1.2. ? Hemoglobin 7.0 this morning. Ordered 1 unit packed RBC. FOBT positive. Ordered Protonix 40 IV twice daily, add sucralfate. I discussed with general surgery and placed a consult. Possibility of EGD colonoscopy in AM. Will await for further recommendations. ? Iron studies reviewed. ? I will discontinue vancomycin at this time. Continue Zosyn for possible colitis as evidenced on abdomen CT. Gallbladder ultrasound reviewed. Decrease density of the liver evidence for fatty infiltration. No gallbladder disease noted. Bile duct is normal. Continue Zosyn for total of 7 days. ? Will put dietary consult. Patient does have protein calorie malnutrition ? Hyponatremia, electrolyte abnormalities, thrombocytopenia most likely secondary to alcohol use. ? Discussed alcohol cessation with her today. She states she will find help and eminence and is not interested in having pressures for alcohol Anonymous at this time... 02/17/2024 - Continue kepra 500 bid. EEG as outpatient. Neuro referral as outpatient. MRI reviewed - K low at 2.4, IV ordered - EGD colonoscopy today - Continue zosyn total 7 days - Hyponatremia, electrolyte abnormalities, thrombocytopenia most likely secondary to alcohol use. - Phosphorus orally ordered - Continue protonix 40 iv bid 02/18/24 Patient had colonoscopy today, 2 polyps identified s/p polypectomy Hemoglobin stable at 9.9 Will continue multivitamin, thiamine and folic acid Continue Keppra 500 twice daily for seizures Continue IV Zosyn and normal saline at 30 cc/h Anticipating discharge in a.m. 02/19/24 She is doing well today. Ready to be discharged home with oral antibiotics and Keppra. Outpatient neurology follow-up in 2 weeks Physical Exam Narrative: Patient is awake and alert Appears significantly better compared to prior day. Alert oriented x 3 Normal S1-S2 Abdomen soft nontender No edema bilateral lower extremities Lungs clear to auscultation bilaterally no wheezes no rhonchi. Discharge Data Studies Completed and Pending Completed Studies During Hospitalization Category Date Time Status CT abdomen pelvis w con* [id number] Stat Cat Scan 02/14/24 02:[address] head wo con* [id number] Routine Cat Scan 02/14/24 04:58 Completed XR chest 1V portable [id number] Stat Exams 02/14/24 00:17 Completed MR head wo con* [id number] Urgent MRI 02/15/24 15:05 Completed CV. echo complete* [id number] Routine Ultrasound 02/14/24 05:21 Completed US gall bladder [id number] Stat Ultrasound 02/14/24 03:34 Completed Pending at discharge Category Date Time Status Pathology: Surgical [PTH] Routine Pth 02/18/24 12:50 Received Radiology Impressions Chest X-Ray 02/14/24 00:17 IMPRESSION: No acute findings. Abdomen/Pelvis CT 02/14/24 02:06 IMPRESSION: 1. Decreased density of the liver, evidence for fatty infiltration. 2. Small hiatal hernia with gastroesophageal reflux. 3. Mild wall thickening and surrounding stranding adjacent to the right colon suspicious for colitis. Gallbladder Ultrasound 02/14/24 03:34 IMPRESSION: 1. No acute findings. 2. Hepatic steatosis. Head CT 02/14/24 04:58 IMPRESSION: 1. No acute intracranial findings. 2. Left maxillary sinusitis incompletely imaged. Head MRI 02/15/24 15:05 IMPRESSION: 1. No acute infarct. Normal diffusion imaging. 2. Mild to moderate cerebral atrophy, more than expected for patient of this age. 3. Minimal small vessel ischemic disease. 4. LEFT maxillary sinusitis. Lesser amount of mucoperiosteal thickening in the LEFT frontal and ethmoid air cells. Laboratory Results WBC 3.56 10^3/uL (3.29-11.43) 02/19/24 05:00 RBC 2.75 10^6/uL (3.85-5.65) L 02/19/24 05:00 Hgb 9.00 g/dL (11.27-16.99) L 02/19/24 05:00 Hct 28.2 % (36-47) L 02/19/24 05:00 MCV 102.5 fl (85-98) H 02/19/24 05:00 MCH 32.7 pg (27-33) 02/19/24 05:00 MCHC 31.9 g/dL (30-55) 02/19/24 05:00 RDW 20.1 % (12.1-15.1) H 02/19/24 05:00 Plt Count 132 10^3/cmm (157-399) L 02/19/24 05:00 MPV 11.3 fL (7.4-10.4) H 02/19/24 05:00 Neut % (Auto) 45.5 % 02/19/24 05:00 Lymph % (Auto) 32.3 % 02/19/24 05:00 [place] % (Auto) 20.2 % 02/19/24 05:00 Eos % (Auto) 1.1 % 02/19/24 05:00 Baso % (Auto) 0.6 % 02/19/24 05:00 Neut # (Auto) 1.62 10^3/uL (1.8-7.7) L 02/19/24 05:00 Lymph # (Auto) 1.2 10^3/uL (0.8-4.8) 02/19/24 05:00 [place] # (Auto) 0.7 10^3/uL (0.2-0.9) 02/19/24 05:00 Eos # (Auto) 0.0 10^3/uL (0.0-0.8) 02/19/24 05:00 Baso # (Auto) 0.0 10^3/uL (0.0-0.1) 02/19/24 05:00 Nucleated RBC % (auto) 0 % 02/19/24 05:00 Nucleated RBCs # 0.0 /100WBC 02/19/24 05:00 Peripher Smr Path Cons Sent for review 02/16/24 00:58 PT 14.60 SECONDS (12.1-14.9) 02/14/24 01:24 INR 1.10 (0.8-1.2) 02/14/24 01:24 APTT 28.9 SECONDS (23.9-36.7) 02/14/24 01:24 Specimen Type Arterial 02/14/24 16:05 Sample Site Brachial, right 02/14/24 16:05 ABG pH 7.55 (7.35-7.45) H 02/14/24 16:05 ABG pCO2 30.6 mmHg (35-45) L 02/14/24 16:05 ABG pO2 73.7 mmHg (80.0-100.0) L 02/14/24 16:05 ABG PO2/FiO2 Ratio 350 02/14/24 16:05 ABG HCO3 26.8 mmol/L (22-26) H 02/14/24 16:05 ABG Base Excess 4.2 mmol/L (-2.0-2.0) H 02/14/24 16:05 Nick Test N/a 02/14/24 16:05 Hematocrit 21.6 % (37-47) L 02/14/24 16:05 O2 Delivery Device Room air 02/14/24 16:05 FiO2 21.0 % 02/14/24 16:05 Entry Level Java Developer ID [id number] 02/14/24 16:05 Sodium 137 mmol/L (136-145) 02/19/24 05:00 Potassium 3.6 mmol/L (3.5-5.1) 02/19/24 05:00 Chloride 103 mmol/L (98-107) 02/19/24 05:00 Carbon Dioxide 26 mmol/L (22-29) 02/19/24 05:00 Anion Gap 11.6 (5-19) 02/19/24 05:00 BUN 3 mg/dL (6-20) L 02/19/24 05:00 Creatinine 0.3 mg/dL (0.5-0.9) L 02/19/24 05:00 GFR Calculation 237.4 mL/min (90-130) H 02/19/24 05:00 Glucose 122 mg/dL (65-115) H 02/19/24 05:00 POC Glucose 175 mg/dL (70-110) H 02/14/24 11:34 Estimat Average Glucose 77 02/14/24 01:24 Hemoglobin A1c 4.3 % (4.0-6.0) 02/14/24 01:24 Calculated Osmolality 282 mOsm/kg (285-295) L 02/19/24 05:00 Lactic Acid 3.1 mmol/L (0.5-2.2) H 02/14/24 01:24 Lactic Acid (Sepsis) 2.8 mmol/L (0.5-2.2) H 02/14/24 05:30 Lactate 1.2 mmol/L (0.5-2.2) 02/15/24 05:17 Calcium 9.1 mg/dL (8.5-10.5) 02/19/24 05:00 Phosphorus 1.2 mg/dL (2.5-4.5) L D 02/16/24 00:58 Phosphorus Cancelled 02/16/24 00:58 Magnesium 2.0 mg/dL (1.7-2.3) 02/18/24 04:56 Iron 160 ug/dL (37-145) H 02/15/24 05:17 TIBC 177 mcg/dl 02/15/24 05:17 % Saturation 90.3 % (20-50) H 02/15/24 05:17 Unsat Iron Binding < 17 ug/dL (112-347) L 02/15/24 05:17 Ferritin 2009 ng/mL (15-150) H 02/15/24 05:17 Total Bilirubin 1.0 mg/dL (0.15-1.2) 02/15/24 05:17 AST 82 U/L (0-32) H 02/15/24 05:17 ALT 14 U/L (0-33) 11/18/24 05:17 Alkaline Phosphatase 173 U/L (35-105) H 02/15/24 05:17 Ammonia 20 umol/L (11-51) 02/14/24 18:10 Creatine Kinase 248 U/L (26-192) H 02/14/24 01:24 Troponin T Baseline 36 ng/L (0-10) H 02/14/24 01:24 Troponin T 120 Minute 31.39 ng/L (0-10) H 02/14/24 03:36 Delta Troponin T -4.61 ABS# (0-10) L 02/14/24 03:36 Troponin T Hi Sens 6Hr 32.20 ng/L (0-10) H 02/14/24 07:30 Troponin T Hi Sens 6Hr Delta -3.80 ng/L (0-12) L 02/14/24 07:30 C-Reactive Protein 4.9 mg/L (0.0-4.9) 02/15/24 05:17 Total Protein 5.7 g/dL (6.6-8.7) L 02/15/24 05:17 Albumin 3.5 g/dL (3.5-5.2) 02/16/24 00:58 Globulin 2.3 g/dL (1.3-4.6) 02/15/24 05:17 Lipase 187 U/L (13-60) H 02/14/24 01:24 Vitamin B12 759 pg/mL (232-1245) 02/14/24 01:24 Procalcitonin 0.22 ng/mL (0-0.5) 02/14/24 01:24 Urine Color Yellow (Yellow) 02/14/24 11:09 Urine Appearance Clear (CLEAR) 02/14/24 11:09 Urine pH 6.5 (5-7) 02/14/24 11:09 Ur Specific [place] 1.017 (1.005-1.030) 02/14/24 11:09 Urine Protein 1+ (Negative) A 02/14/24 11:09 Urine Glucose (UA) Negative (Normal) 02/14/24 11:09 Urine Ketones 3+ (Negative) H 02/14/24 11:09 Urine Blood Trace (Negative) A 02/14/24 11:09 Urine Nitrate Positive (Negative) A 02/14/24 11:09 Urine Bilirubin Negative (Negative) 02/14/24 11:09 Urine Urobilinogen 1.0 mg/dL (Negative) 02/14/24 11:09 Ur Leukocyte Esterase Trace (Negative) A 02/14/24 11:09 Urine RBC 0-2 /hpf (0-2) 02/14/24 11:09 Urine WBC 0-5 /hpf (0-5) 02/14/24 11:09 Ur Squamous Epith Cells 0-5 /hpf (0-5) 02/14/24 11:09 Amorphous Sediment Not Reportable 02/14/24 11:09 Urine Bacteria 1+ /hpf (NONE) H 02/14/24 11:09 Hyaline Casts 4.11 /lpf 02/14/24 11:09 Urine Opiates Screen Negative ng/mL (Negative) 02/14/24 11:09 Ur Barbiturates Screen Negative ng/mL (Negative) 02/14/24 11:09 Ur Phencyclidine Scrn Negative ng/mL (Negative) 02/14/24 11:09 Ur Amphetamines Screen Negative ng/mL (Negative) 02/14/24 11:09 U Benzodiazepines Scrn Negative ng/mL (Negative) 02/14/24 11:09 Urine Cocaine Screen Negative ng/mL (Negative) 02/14/24 11:09 U Marijuana (THC) Screen Negative ng/mL (Negative) 02/14/24 11:09 Ethyl Alcohol < 10 mg/dL (0-10) 02/14/24 03:30 C. difficile (PCR) Negative (Negative) 02/14/24 17:00 Hepatitis A IgM Ab Non-reactive (Nonreactive) 02/14/24 01:24 Hep Bs Antigen Non-reactive (Nonreactive) 02/14/24 01:24 Hep Bs Antibody < 3.5 (11.5-1000) L 02/14/24 01:24 Hep B Core Total Ab Non-reactive (Nonreactive) 02/14/24 01:24 Hepatitis C Antibody Non-reactive (Nonreactive) 02/14/24 01:24 HIV 1&2 Ab & HIV 1 Ag Non-reactive (Non-Reactiv) 02/14/24 01:24 HIV 1&2 Antibody Non-reactive (Non-Reactiv) 02/14/24 01:24 Blood Type A Positive 02/15/24 10:00 Rho(D) Type Rh positive 02/15/24 10:00 Antibody Screen Negative 02/15/24 10:00 Crossmatch See Detail 02/15/24 10:00 Vitals Last Vital Signs Temp 98.8 F 02/19/24 12:03 Pulse 109 H 02/19/24 12:03 Resp 17 02/19/24 12:03 BP 128/88 02/19/24 12:03 Pulse Ox 99 02/19/24 12:03 O2 Del Method Room Air 02/19/24 12:03 Discharge Plan Discharge Patient Disposition: Home Condition: Serious Prescriptions: New levetiracetam 500 mg Tablet 500 mg PO BID 30 Days Qty: 60 0RF metronidazole 500 mg Tablet 500 mg PO TID 2 Days Qty: 6 0RF ciprofloxacin HCl 500 mg Tablet 500 mg PO BID@0900,2100 2 Days Qty: 4 0RF Discharge Orders: Discharge Order (Routine); Ordered 02/19/24 Ordered By: Belgica You Referrals: JW Felipe FNP [Nurse Practitioner] - 02/29/24 10:00 am Discharge Diet: Regular Discharge Activity: Increase activity as tolerated Patient Instructions: GI Post Discharge Instructions w/ Anesthesia, Opioid Safety Discharge Attestations Time Spent in Discharge Care*: less than 30 min Quality Metrics Clinical Quality Measures [ No reported AMI, CVA or VTE this stay] Coding Level of Care Code Acute Code for Chg Fwd Diagnoses GIB (gastrointestinal bleeding) K92.2 Time Spent (min) 20
== END 2024-02-19 14:30 | disposition home or self-care (01) | DRG 897 ==
LOC: ER 02:20 → ICU 04:23 → MEDSURG 14:57
PROVIDERS: Internal Medicine; Student in an Organized Health Care Education/Training Program; Admitting Provider Internal Medicine; Emergency Provider Emergency Medicine; Visit Provider Internal Medicine
PROC: 0DJ08ZZ Inspection of Upper Intestinal Tract, Via Natural or Artificial Opening Endoscopic (ICD-10-PCS; CPT 43235; principal; 2024-02-18 12:00)
PROC: 0DJD8ZZ Inspection of Lower Intestinal Tract, Via Natural or Artificial Opening Endoscopic (ICD-10-PCS; CPT 45378; 2024-02-18 12:00)
DX: F10.139 Alcohol abuse with withdrawal, unspecified (principal); G40.89 Other seizures; E87.20 Acidosis, unspecified; E87.1 Hypo-osmolality and hyponatremia; E46 Unspecified protein-calorie malnutrition; Y90.0 Blood alcohol level of less than 20 mg/100 ml; F17.210 Nicotine dependence, cigarettes, uncomplicated; W18.30XA Fall on same level, unspecified, initial encounter; Y92.230 Patient room in hospital as the place of occurrence of the external cause; R32 Unspecified urinary incontinence; I10 Essential (primary) hypertension; E86.0 Dehydration; R00.0 Tachycardia, unspecified; E87.6 Hypokalemia; D12.8 Benign neoplasm of rectum; D69.59 Other secondary thrombocytopenia; K76.0 Fatty (change of) liver, not elsewhere classified; R55 Syncope and collapse; D64.9 Anemia, unspecified; K52.9 Noninfective gastroenteritis and colitis, unspecified; Z68.22 Body mass index [BMI] 22.0-22.9, adult
CPT/HCPCS: 36415; 36416; 36430; 36600; 43235; 45385; 70450; 70551; 71045; 74177; 76705; 80048; 80053; 80069; 80306; 80307; 80503; 81001; 82140; 82274; 82550; 82607; 82728; 82803; 82962; 83036; 83540; 83550; 83605; 83690; 83735; 84100; 84132; 84145; 84484; 85025; 85610; 85730; 86140; 86705; 86706; 86709; 86803; 86850; 86900; 86920; 87040; 87086; 87340; 87493; 87806; 88305; 93005; 93306; 96365; 96366; 96367; 96372; 99285; J0360; J1650; J1953; J2470; J2543; J2704; J3411; J3475; J3480; J7030; J7070; P9040